=== PATIENT | female | born 1990 | race African-American/Black ===

== ENCOUNTER 2018-10-15 19:06 | Emergency (ER) | payer MEDICAID, OTHER ==
--- NOTE | 2018-10-15 19:43 | ER Document Report ---
ED Medical Screen (RME) - General Chief Complaint: Abdominal Pain Stated Complaint: STOMACH PAIN Time Seen by Provider: 10/15/18 19:36 Notes: 28-year-old female patient who got her Depo shot earlier this month, reports about a 5-day history of nighttime epigastric and right upper quadrant abdominal pain which is sharp in nature and at times provokes nausea vomiting. She did have burger and fries for supper last night. She states she does get cramping sometimes when she is on the Depo shot, but states this seems different. I have greeted and performed a rapid initial assessment of this patient. A comprehensive ED assessment and evaluation of the patient, analysis of test results and completion of the medical decision making process will be conducted by additional ED providers. TRAVEL OUTSIDE OF THE [place] IN LAST 30 DAYS: No - Related Data Allergies/Adverse Reactions: No Known Allergies Allergy (Verified 10/15/18 19:36) Past Medical History - Social History Frequency of alcohol use: Occasional Drug Abuse: None Renal/ Medical History: Denies: Hx Peritoneal Dialysis Past Surgical History: Reports: Hx Gynecologic Surgery - d & c - Immunizations Hx Diphtheria, Pertussis, Tetanus Vaccination: Yes Physical Exam - Vital signs Vitals: Temp Pulse Resp BP Pulse Ox 97.9 F 89 16 105/67 100 10/15/18 19:14 10/15/18 19:14 10/15/18 19:14 10/15/18 19:14 10/15/18 19:14 Course - Vital Signs Vital signs: Temp Pulse Resp BP Pulse Ox 97.9 F 89 16 105/67 100 10/15/18 19:14 10/15/18 19:14 10/15/18 19:14 10/15/18 19:14 10/15/18 19:14
--- NOTE | 2018-10-15 20:36 | RADIOLOGY REPORT (SQ) ---
US ABDOMEN LIMITED HISTORY: Right upper quadrant pain. COMPARISON: None. TECHNIQUE: Grayscale and color Doppler imaging of the right upper quadrant was performed. FINDINGS: The liver has normal echotexture without focal lesion identified. The main portal vein has normal hepatopetal flow. The gallbladder is contracted, limiting evaluation. No gallstones or inflammatory changes are seen. The common bile duct is normal caliber. The pancreas is unremarkable. No hydronephrosis or shadowing renal stones are identified. The right kidney is normal in size. There is a 1.5 x 1.6 x 1.7 cm septated cyst in the upper pole. The visualized portions of the IVC and aorta are patent. IMPRESSION: 1. Contracted gallbladder limits evaluation. However no gallstones are seen. 2. 1.7 cm septated cyst in the upper pole right kidney.
[2018-10-15 20:42] LABS: ABSOLUTE EOSINOPHILS # (AUTO) 0.2 10^3/uL (0.0-0.6); ABSOLUTE LYMPHOCYTES (AUTO) 2.8 10^3/uL (0.5-4.7); ABSOLUTE MONOCYTES (AUTO) 0.6 10^3/uL (0.1-1.4); BASOPHILS % (AUTO) 0.5 % (0-2); EOSINOPHILS % (AUTO) 1.8 % (0-6); HEMATOCRIT 42.5 % (36.0-47.0); HEMOGLOBIN 14.5 g/dL (12.0-15.5); MEAN CORPUSCULAR HEMOGLOBIN 30.7 pg (27.0-33.4); MEAN CORPUSCULAR HGB CONC 34.1 g/dL (32.0-36.0); MEAN CORPUSCULAR VOLUME 90 fl (80-97); MONOCYTES % (AUTO) 7.3 % (3-13); PLATELET COUNT 224 10^3/uL (150-450); RED BLOOD COUNT 4.72 10^6/uL (3.72-5.28); RED CELL DISTRIBUTION WIDTH 13.4 % (11.5-14.0); SEGMENTED NEUTROPHILS % (AUTO) 58.4 % (42-78); TOTAL CELLS COUNTED % (AUTO) 100 %; WHITE BLOOD COUNT 8.6 10^3/uL (4.0-10.5)
[2018-10-15 20:47] LABS: APPEARANCE,URINE CLEAR; BILIRUBIN,URINE NEGATIVE (NEGATIVE); COLOR,URINE YELLOW; GLUCOSE, URINE NEGATIVE (NEGATIVE); KETONES,URINE NEGATIVE (NEGATIVE); LEUKOCYTE ESTERASE,URINE NEGATIVE (NEGATIVE); NITRITE,URINE NEGATIVE (NEGATIVE); PROTEIN,URINE NEGATIVE (NEGATIVE); URINE SPECIFIC GRAVITY 1.021
--- NOTE | 2018-10-15 20:55 | ER Document Report ---
ED GI/ - General Chief Complaint: Abdominal Pain Stated Complaint: STOMACH PAIN Time Seen by Provider: 10/15/18 19:36 Primary Care Provider: [facility] [Provider Group] - Follow up in 3-5 days [facility] [Primary Care Provider] - Follow up in 3-5 days Notes: Patient is a 28-year-old female that comes emergency department for chief complaint of abdominal pain. She states that she has had abdominal pains intermittently for the past 5 days, last night it was worse when lying down, she vomited 3 times since last night. She reports her pain is mainly in her right mid to upper abdomen, she reports some vague pain in her back tube. She reports a few loose stools since yesterday as well. Denies hematemesis or hematochezia. Denies fever or chills. Denies lower abdominal pain, vaginal bleeding, vaginal discharge, dysuria. Patient did have a burger and fries for dinner last night. She states she got her Depakote shot this month but the cramping she usually gets with that feels different from what she is experiencing. She has had a D&C, she denies any medical history otherwise. TRAVEL OUTSIDE OF THE [place] IN LAST 30 DAYS: No - Related Data Allergies/Adverse Reactions: No Known Allergies Allergy (Verified 10/15/18 19:36) Past Medical History - General Information source: Patient - Social History Smoking Status: Never Smoker Frequency of alcohol use: Occasional Drug Abuse: None Lives with: Family Family History: Reviewed & Not Pertinent Patient has suicidal ideation: No Patient has homicidal ideation: No - Medical History Medical History: Negative Renal/ Medical History: Denies: Hx Peritoneal Dialysis Past Surgical History: Reports: Hx Gynecologic Surgery - d & c - Immunizations Hx Diphtheria, Pertussis, Tetanus Vaccination: Yes Review of Systems - Review of Systems Constitutional: No symptoms reported EENT: No symptoms reported Cardiovascular: No symptoms reported Respiratory: No symptoms reported Gastrointestinal: See HPI Genitourinary: No symptoms reported Female Genitourinary: No symptoms reported Musculoskeletal: No symptoms reported Skin: No symptoms reported Hematologic/Lymphatic: No symptoms reported Neurological/Psychological: No symptoms reported Physical Exam - Vital signs Vitals: Temp Pulse Resp BP Pulse Ox 97.9 F 89 16 105/67 100 10/15/18 19:14 10/15/18 19:14 10/15/18 19:14 10/15/18 19:14 10/15/18 19:14 - Notes Notes: GENERAL: Alert, interacts well. No acute distress. HEAD: Normocephalic, atraumatic. EYES: Pupils equal, round, and reactive to light. Extraocular movements intact. ENT: Oral mucosa moist, tongue midline. Oropharynx unremarkable. Airway patent. Nares patent, no nasal septal hematoma, TM's intact. NECK: Full range of motion. Supple. Trachea midline. LUNGS: Clear to auscultation bilaterally, no wheezes, rales, or rhonchi. No respiratory distress. HEART: Regular rate and rhythm. No murmur ABDOMEN: Soft, non-tender. Non-distended. Bowel sounds present in all 4 quadrants. GENITOURINARY: Deferred EXTREMITIES: Moves all 4 extremities spontaneously. No edema, normal radial and dorsalis pedis pulses bilaterally. No cyanosis. BACK: no cervical, thoracic, lumbar midline tenderness. No saddle anesthesia, normal distal neurovascular exam. NEUROLOGICAL: Alert and oriented x3. Normal speech. [cranial nerves II through XII grossly intact]. PSYCH: Normal affect, normal mood. SKIN: Warm, dry, normal turgor. No rashes or lesions noted. Course - Re-evaluation Re-evalutation: Patient with no current symptoms. Her abdomen is benign unremarkable. She indicates that the pain is in the right upper quadrant area and some up to the epigastric area and mid abdomen. However the abdomen is nontender at this time. She states the symptoms keep happening during the night. Ultrasound shows incidental right renal cyst, unremarkable gallbladder, CBC, c hemistry, lipase, urinalysis unremarkable. test added on. test is actually positive. I discussed with patient at bedside. She has no lower abdominal pain, no vaginal bleeding, and she has no current symptoms. However decision was made to proceed with hCG quantitative, this is performed, this was 67,000. Based on her lack of pain and very elevated hCG I do have a low suspicion of ectopic but I did recommend that we perform an ultrasound to confirm intrauterine because of her abdominal pain and vomiting along with elevated hCG. Patient declined. Patient states that she will follow-up with the health department first, requested proof of form, she was provided with the Zofran and Pepcid for home. Discussed return precautions in detail. Patient states understanding and agreement with plan. Stable at time of discharge. - Vital Signs Vital signs: Temp Pulse Resp BP Pulse Ox 97.6 F 76 15 97/56 L 100 10/15/18 21:43 10/15/18 21:43 10/15/18 21:43 10/15/18 21:43 10/15/18 21:43 - Laboratory Result Diagrams: 10/15/18 20:17 10/15/18 20:17 Laboratory results interpreted by me: 10/15/18 10/15/18 10/15/18 20:17 20:17 20:17 Sodium 135.8 L Beta HCG, Quant Urine Urobilinogen 2.0 H Urine HCG, Qual POSITIVE H 10/15/18 20:17 Sodium Beta HCG, Quant 62821.00 H Urine Urobilinogen Urine HCG, Qual Discharge - Discharge Clinical Impression: Upper abdominal pain, Vomiting affecting Disposition: HOME, SELF-CARE Additional Instructions: Your ultrasound shows a cyst on your kidney (right), otherwise is unremarkable. This is routinely followed by primary care. Your lab workup does not show any concerning findings. Your test is positive, because we did not obtain an ultrasound today and I do not know the exact duration of your . You have been provided with nausea medication to take if needed, you can take the Pepcid as well. Follow-up closely with health department or the OBGYN referral listed, begin vitamins. Return if you worsen in any way including uncontrolled vomiting, lower abdominal pain, vaginal bleeding, or any other concerning or worsening symptoms. Prescriptions: Famotidine [Pepcid 20 mg Tablet] 20 mg PO BID #12 tablet Ondansetron [Zofran Odt 4 mg Tablet] 1 - 2 tab PO Q4H PRN #15 tab.rapdis PRN Reason: For Nausea/Vomiting [facility] - Follow up in 3-5 days [facility] [Provider Group] - Follow up in 3-5 days
[2018-10-15 21:07] LABS: ALANINE AMINOTRANSFERASE 23 U/L (9-52); ALKALINE PHOSPHATASE 86 U/L (38-126); ANION GAP 8 (5-19); ASPARTATE AMINO TRANSFERASE 19 U/L (14-36); BILIRUBIN,DIRECT 0.2 mg/dL (0.0-0.4); BILIRUBIN,TOTAL 0.4 mg/dL (0.2-1.3); BLOOD UREA NITROGEN 14 mg/dL (7-20); CARBON DIOXIDE 27 mmol/L (22-30); CHLORIDE 101 mmol/L (98-107); GLUCOSE 82 mg/dL (75-110); LIPASE 147.9 U/L (23-300); POTASSIUM 4.2 mmol/L (3.6-5.0); SODIUM 135.8 mmol/L (137-145); TOTAL PROTEIN 7.3 g/dL (6.3-8.2)
[2018-10-15] MEDS ORDERED: FAMOTIDINE 20 MG TABLET PO ONE (21:27)
[2018-10-15] MEDS ORDERED: ONDANSETRON 4 MG TAB.RAPDIS PO ONE (21:27)
[2018-10-15] MEDS ORDERED: SUCRALFATE 1 GM TABLET PO ONE (21:27)
[2018-10-15 21:44] VITALS: BP 97/56
== END 2018-10-15 23:13 | disposition home or self-care (01) ==
LOC: ER 19:06
DX: O21.9 Vomiting of pregnancy, unspecified (principal); R10.10 Upper abdominal pain, unspecified
CPT/HCPCS: 36415; 99284; 84702; 83690; 85025; 81025; 80053; 81001; 76705; S0119

== ENCOUNTER 2018-12-19 10:28 | Emergency (ER) | payer MEDICAID ==
[2018-12-19] MEDS ORDERED: ACETAMINOPHEN 325 MG TABLET PO ONE (10:51)
--- NOTE | 2018-12-19 10:53 | ER Document Report ---
ED Medical Screen (RME) - General Chief Complaint: OB Problem (<20wks) Stated Complaint: ABDOMINAL PAIN Time Seen by Provider: 12/19/18 10:47 Primary Care Provider: [facility] CRESPO [Primary Care Provider] - Follow up as needed Mode of Arrival: Ambulatory Information source: Patient Notes: Patient presents with complaints of contractions and vomiting twice this morning. Reports she is G4, P3 approximately 16 weeks with twins. Has first OB appointment in [place]. Denies trauma. Denies diarrhea. 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 They have eased off a little since she sat down. Has not had this in the past. Reports her first 3 pregnancies with vaginal without complications. I have greeted and performed a rapid initial assessment of this patient. A comprehensive ED assessment and evaluation of the patient, analysis of test results and completion of the medical decision making process will be conducted by additional ED providers. Dictation of this chart was performed using voice recognition software; therefore, there may be some unintended grammatical errors. TRAVEL OUTSIDE OF THE [place] IN LAST 30 DAYS: No - Related Data Allergies/Adverse Reactions: No Known Allergies Allergy (Verified 12/19/18 10:29) Past Medical History Renal/ Medical History: Denies: Hx Peritoneal Dialysis Past Surgical History: Reports: Hx Gynecologic Surgery - d & c - Immunizations Hx Diphtheria, Pertussis, Tetanus Vaccination: Yes Physical Exam - Vital signs Vitals: Temp Pulse Resp BP Pulse Ox 98.2 F 88 16 103/57 L 100 12/19/18 10:12/19/18 10:12/19/18 10:12/19/18 10:31 12/19/18 10:31 Course - Vital Signs Vital signs: Temp Pulse Resp BP Pulse Ox 98.2 F 88 16 103/57 L 100 12/19/18 10:31 12/19/18 10:31 12/19/18 10:31 12/19/18 10:31 12/19/18 10:31 Doctor's Discharge - Discharge Referrals: CHAI CRESPO [Primary Care Provider] - Follow up as needed
[2018-12-19 11:37] LABS: ABSOLUTE EOSINOPHILS # (AUTO) 0.1 10^3/uL (0.0-0.6); ABSOLUTE LYMPHOCYTES (AUTO) 1.1 10^3/uL (0.5-4.7); ABSOLUTE MONOCYTES (AUTO) 0.4 10^3/uL (0.1-1.4); ABSOLUTE NEUT (AUTO) 4.8 10^3/uL (1.7-8.2); BASOPHILS % (AUTO) 0.1 % (0-2); EOSINOPHILS % (AUTO) 1.3 % (0-6); HEMATOCRIT 38.5 % (36.0-47.0); HEMOGLOBIN 12.8 g/dL (12.0-15.5); LYMPHOCYTES % (AUTO) 17.6 % (13-45); MEAN CORPUSCULAR HEMOGLOBIN 30.1 pg (27.0-33.4); MEAN CORPUSCULAR HGB CONC 33.4 g/dL (32.0-36.0); MEAN CORPUSCULAR VOLUME 90 fl (80-97); MONOCYTES % (AUTO) 6.1 % (3-13); PLATELET COUNT 215 10^3/uL (150-450); RED BLOOD COUNT 4.26 10^6/uL (3.72-5.28); RED CELL DISTRIBUTION WIDTH 13.6 % (11.5-14.0); SEGMENTED NEUTROPHILS % (AUTO) 74.9 % (42-78); TOTAL CELLS COUNTED % (AUTO) 100 %; WHITE BLOOD COUNT 6.4 10^3/uL (4.0-10.5)
[2018-12-19 11:41] LABS: APPEARANCE,URINE SLIGHTLY-CLOUDY; BILIRUBIN,URINE NEGATIVE (NEGATIVE); COLOR,URINE YELLOW; GLUCOSE, URINE NEGATIVE (NEGATIVE); KETONES,URINE TRACE mg/dL (NEGATIVE); LEUKOCYTE ESTERASE,URINE NEGATIVE (NEGATIVE); NITRITE,URINE NEGATIVE (NEGATIVE); PROTEIN,URINE NEGATIVE (NEGATIVE); URINE SPECIFIC GRAVITY 1.019; UROBILINOGEN,URINE NEGATIVE mg/dL (<2.0)
[2018-12-19 12:11] LABS: ALANINE AMINOTRANSFERASE 38 U/L (9-52); ALBUMIN 3.8 g/dL (3.5-5.0); ALKALINE PHOSPHATASE 63 U/L (38-126); ANION GAP 9 (5-19); ASPARTATE AMINO TRANSFERASE 39 U/L (14-36); BILIRUBIN,DIRECT 0.2 mg/dL (0.0-0.4); BILIRUBIN,TOTAL 0.4 mg/dL (0.2-1.3); BLOOD UREA NITROGEN 7 mg/dL (7-20); CALCIUM 9.4 mg/dL (8.4-10.2); CARBON DIOXIDE 25 mmol/L (22-30); CHLORIDE 104 mmol/L (98-107); GLUCOSE 74 mg/dL (75-110); POTASSIUM 4.3 mmol/L (3.6-5.0); SODIUM 138.2 mmol/L (137-145); TOTAL PROTEIN 6.9 g/dL (6.3-8.2)
--- NOTE | 2018-12-19 13:07 | RADIOLOGY REPORT (SQ) ---
EXAM DESCRIPTION: U/S 30219 + EACH ADDIT GEST; U/S OB 14+ TRNABD 1GES W/O DOP COMPLETED DATE/TIME: 12/19/2018 12:49 pm REASON FOR STUDY: 16weeks twins contractions; CONTRACTIONS- 16 WEEK TWINS COMPARISON: None. TECHNIQUE: Transabdominal static and realtime grayscale images acquired of the pelvis. Additional se lected spectral and color Doppler images recorded. All images stored on PACs. bHCG: Not applicable. CLINICAL DATES: 16 weeks 6 days LIMITATIONS: None. FINDINGS: Twin Intra-uterine gestation TYPE OF TWIN: Dichorionic Diamniotic. Two gestation sacs. Two yolk sacs. TWIN A: ULTRASOUND EGA: 15 weeks 3 days ULTRASOUND SRINIVASA: 06/09/2019 EFW: 124 +/- 18 g BPD: 3.05 cm GESTATIONAL SAC: Normal shape. SURVEY: Too early to assess. FHR: 155 bpm. AMNIOTIC FLUID: Adequate amount. PLACENTA: Posterior SUBCHORIONIC BLEED: No SIZE OF BLEED: Not applicable. ANATOMICAL SURVEY: bladder, stomach, spine, and extremities were unremarkable. TWIN B: ULTRASOUND EGA: 16 weeks 0 days ULTRASOUND SRINIVASA: 06/05/2019 EFW: 150 +/- 22 g BPD: 3.21 cm GESTATIONAL SAC: Normal shape. SURVEY: Too early to assess. FHR: 153 bpm. AMNIOTIC FLUID: Adequate amount. SUBCHORIONIC BLEED: None SIZE OF BLEED: Not applicable. ANATOMICAL SURVEY: stomach, spine, and extremities were unremarkable. UTERUS: No masses. No anomalies. CERVICAL LENGTH: 2.5 cm. Closed. RIGHT ADNEXA: Normal ovary with normal vascular flow. No adnexal free fluid. No adnexal masses. LEFT ADNEXA: Normal ovary with normal vascular flow. No adnexal free fluid. No adnexal masses. FREE FLUID: None. OTHER: An anterior contraction was noted during the study. IMPRESSION: LIVING TWIN INTRAUTERINE TWIN A EGA: 15 weeks 3 days TWIN B EGA: 16 weeks 0 days Trimester of : Second-trimester. TECHNICAL DOCUMENTATION: JOB ID: [id number] [employer]- All Rights Reserved rev Reading location - IP/workstation name: [email or web address]
--- NOTE | 2018-12-19 13:07 | RADIOLOGY REPORT (SQ) ---
EXAM DESCRIPTION: U/S 35173 + EACH ADDIT GEST; U/S OB 14+ TRNABD 1GES W/O DOP COMPLETED DATE/TIME: 12/19/2018 12:49 pm REASON FOR STUDY: 16weeks twins contractions; CONTRACTIONS- 16 WEEK TWINS COMPARISON: None. TECHNIQUE: Transabdominal static and realtime grayscale images acquired of the pelvis. Additional se lected spectral and color Doppler images recorded. All images stored on PACs. bHCG: Not applicable. CLINICAL DATES: 16 weeks 6 days LIMITATIONS: None. FINDINGS: Twin Intra-uterine gestation TYPE OF TWIN: Dichorionic Diamniotic. Two gestation sacs. Two yolk sacs. TWIN A: ULTRASOUND EGA: 15 weeks 3 days ULTRASOUND SRINIVASA: 06/09/2019 EFW: 124 +/- 18 g BPD: 3.05 cm GESTATIONAL SAC: Normal shape. SURVEY: Too early to assess. FHR: 155 bpm. AMNIOTIC FLUID: Adequate amount. PLACENTA: Posterior SUBCHORIONIC BLEED: No SIZE OF BLEED: Not applicable. ANATOMICAL SURVEY: bladder, stomach, spine, and extremities were unremarkable. TWIN B: ULTRASOUND EGA: 16 weeks 0 days ULTRASOUND SRINIVASA: 06/05/2019 EFW: 150 +/- 22 g BPD: 3.21 cm GESTATIONAL SAC: Normal shape. SURVEY: Too early to assess. FHR: 153 bpm. AMNIOTIC FLUID: Adequate amount. SUBCHORIONIC BLEED: None SIZE OF BLEED: Not applicable. ANATOMICAL SURVEY: stomach, spine, and extremities were unremarkable. UTERUS: No masses. No anomalies. CERVICAL LENGTH: 2.5 cm. Closed. RIGHT ADNEXA: Normal ovary with normal vascular flow. No adnexal free fluid. No adnexal masses. LEFT ADNEXA: Normal ovary with normal vascular flow. No adnexal free fluid. No adnexal masses. FREE FLUID: None. OTHER: An anterior contraction was noted during the study. IMPRESSION: LIVING TWIN INTRAUTERINE TWIN A EGA: 15 weeks 3 days TWIN B EGA: 16 weeks 0 days Trimester of : Second-trimester. TECHNICAL DOCUMENTATION: JOB ID: [id number] [employer]- All Rights Reserved rev Reading location - IP/workstation name: [email or web address]
--- NOTE | 2018-12-19 14:56 | ER Document Report ---
ED GI/ - General Chief Complaint: OB Problem (<20wks) Stated Complaint: ABDOMINAL PAIN Time Seen by Provider: 12/19/18 10:47 [facility] - Follow up as needed Mode of Arrival: Ambulatory Information source: Patient Notes: 28-year-old female presented to ED for abdominal pain twice this morning. She is 4 para 3 approximately 16 weeks with twins. She is seeing [place] [facility]. She denies any trauma or any other problems. She states she had some orange juice and donuts this morning which made her sick and then made her stomach hurt. 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 She states she is no longer having any pain or any nausea. She states her first 3 pregnancies were with no difficulty. TRAVEL OUTSIDE OF THE [place] IN LAST 30 DAYS: No - HPI Patient complains to provider of: Abdominal pain, Onset: This morning Timing/Duration: Gone Quality of pain: Cramping Severity at maximum: Severe Severity in ED: None Pain Level: Denies Location: Pelvis - States pain was in the pelvis earlier she is not having any now Vaginal bleeding (Compared to normal period): None Menstrual period history: : 4 Para: 3 heart tones (bpm): 155 - twin b 153 EDC: 06/05/19 - 06/09/19 OB ultrasound done: Yes vitamins taken: Yes Associated symptoms: Nausea, Vomiting - gone now Exacerbated by: Denies Relieved by: Denies Similar symptoms previously: Yes Recently seen / treated by doctor: Yes - Related Data Allergies/Adverse Reactions: No Known Allergies Allergy (Verified 12/19/18 11:01) Past Medical History - General Information source: Patient Last Menstrual Period: unknown - Social History Smoking Status: Never Smoker Chew tobacco use (# tins/day): No Frequency of alcohol use: None Drug Abuse: None Lives with: Family Family History: Reviewed & Not Pertinent Patient has suicidal ideation: No Patient has homicidal ideation: No - Past Medical History Cardiac Medical History: Reports: None Pulmonary Medical History: Reports: None EENT Medical History: Reports: None Neurological Medical History: Reports: None Endocrine Medical History: Reports: None Renal/ Medical History: Reports: None Malignancy Medical History: Reports: None GI Medical History: Reports: None Musculoskeletal Medical History: Reports None Skin Medical History: Reports None Psychiatric Medical History: Reports: None Traumatic Medical History: Reports: None Infectious Medical History: Reports: None Past Surgical History: Reports: Hx Gynecologic Surgery - d & c - Immunizations Hx Diphtheria, Pertussis, Tetanus Vaccination: Yes Review of Systems - Review of Systems Constitutional: No symptoms reported EENT: No symptoms reported Cardiovascular: No symptoms reported Respiratory: No symptoms reported Gastrointestinal: Abdominal pain, Nausea, Vomiting Genitourinary: No symptoms reported Female Genitourinary: No symptoms reported Musculoskeletal: No symptoms reported Skin: No symptoms reported Hematologic/Lymphatic: No symptoms reported Neurological/Psychological: No symptoms reported -: Yes All other systems reviewed and negative Physical Exam - Vital signs Vitals: Temp Pulse Resp BP Pulse Ox 98.2 F 88 16 103/57 L 100 12/19/18 10:31 12/19/18 10:31 12/19/18 10:31 12/19/18 10:31 12/19/18 10:31 Interpretation: Normal - General General appearance: Appears well, Alert - HEENT Head: Normocephalic, Atraumatic Eyes: Normal Pupils: PERRL - Respiratory Respiratory status: No respiratory distress Chest status: Nontender Breath sounds: Normal Chest palpation: Normal - Cardiovascular Rhythm: Regular Heart sounds: Normal auscultation Murmur: No - Abdominal Inspection: Normal Distension: No distension Bowel sounds: Normal Tenderness: Nontender Organomegaly: No organomegaly - Back Back: Normal, Nontender - Extremities General upper extremity: Normal inspection, Nontender, Normal color, Normal ROM, Normal temperature General lower extremity: Normal inspection, Nontender, Normal color, Normal ROM, Normal temperature, Normal weight bearing. No: Odette's sign - Neurological Neuro grossly intact: Yes Cognition: Normal Orientation: AAOx4 [place] Coma Scale Eye Opening: Spontaneous Мария Coma Scale Verbal: Oriented [place] Coma Scale Motor: Obeys Commands Мария Coma Scale Total: 15 Speech: Normal Motor strength normal: LUE, RUE, LLE, RLE Sensory: Normal - Psychological Associated symptoms: Normal affect, Normal mood - Skin Skin Temperature: Warm Skin Moisture: Dry Skin Color: Normal Course - Re-evaluation Re-evalutation: 12/19/18 14:58 Discussed and ultrasound and labs with patient and written report of ultrasound and labs given to patient for follow-up with [facility] OPERATOR. Also gave patient a CD of the ultrasound to take to her follow-up [facility] OPER[facility] appointment. Patient will be discharged home to follow-up with her KEYSEATER OPERATOR. - Vital Signs Vital signs: Temp Pulse Resp BP Pulse Ox 97.7 F 88 20 101/66 100 12/19/18 14:59 12/19/18 14:59 12/19/18 14:59 12/19/18 14:59 12/19/18 14:59 - Laboratory Result Diagrams: 12/19/18 11:10 12/19/18 11:10 Laboratory results interpreted by me: 12/19/18 12/19/18 11:10 11:10 Creatinine 0.40 L Glucose 74 L AST 39 H Urine Ketones TRACE H Urine Ascorbic Acid 20 H - Diagnostic Test Radiology reviewed: Image reviewed, Reports reviewed Discharge - Discharge Clinical Impression: Qualifiers: Weeks of gestation: 16 weeks Qualified Code(s): Z3A.16 - 16 weeks gestation of Condition: Stable Disposition: HOME, SELF-CARE Additional Instructions: You are . care is best started as early in as possible. If you're unsure about continuing this , you should discuss this with your physician or with forging dies final finisher at [facility]. You should take only medications approved by your physician. Acetaminophen can safely be taken for minor pains. As a rule, medication for chronic conditions such as asthma or seizures can safely be continued. You should discuss with the physician every medicine you take. Any regular exercise program can be continued. Talk to your physician, however, before engaging in competitive or demanding sports. Alcohol, smoking, and "street drugs" are dangerous to your baby. Cocaine is especially dangerous. Don't use any illicit drugs! Acetaminophen Acetaminophen may be taken for pain relief or fever control. It's much safer than aspirin, offering a wider range of "safe" dosages. It is safe during . Some brand names are Tylenol, Panadol, Datril, Anacin 3, Tempra, and Liquiprin. Acetaminophen can be repeated every four hours. The following are maximum recommended dosages: WEIGHT Dose Drops Elixir Chewable(80mg) (LBS.) drprs=droppers tsp=teaspoon 6 40 mg .4 ml (1/2) 6-11 80 mg .8 ml (full) 1/2 tsp 1 tab 12-16 120 mg 1 1/2 drprs 3/4 tsp 1 1/2 tabs 17-23 160 mg 2 drprs 1 tsp 2 tabs 24-30 240 mg 3 drprs 1 1/2 tsp 3 tabs 30-35 320 mg 2 tsp 4 tabs 36-41 360 mg 2 1/4 tsp 4 1/2 tabs 42-47 400 mg 2 1/2 tsp 5 tabs 48-53 480 mg 3 tsp 6 tabs 54-59 520 mg 3 1/4 tsp 6 1/2 tabs 60-64 560 mg 3 1/2 tsp 7 tabs 65-70 600 mg 3 3/4 tsp 7 1/2 tabs 71-76 640 mg 4 tsp 8 tabs 77-82 720 mg 4 1/2 tsp 9 tabs 83-88 800 mg 5 tsp 10 tabs >89 pounds or adults 650 mg to 900 mg Acetaminophen can be repeated every four hours. Maximum daily dose not to exceed 4000 mg. These maximum recommended dosages are slightly higher than the dosages written on the product container, but these dosages are very safe and well below the toxic dosage for acetaminophen. Written report of your labs and ultrasound have been given to you for you to take to your follow-up visit with your [facility]SEATER OPERATOR. I have also given you a CD of your ultrasound to take to your visit. Please follow-up with your KEYSEATER OPERATOR as scheduled. FOLLOW-UP CARE: If you have been referred to a physician for follow-up care, call the physicians office for an appointment as you were instructed or within the next two days. If you experience worsening or a significant change in your symptoms, notify the physician immediately or return to the Emergency Department at any time for re-evaluation. Forms: Return to Work [facility] - Follow up as needed
[2018-12-19 15:01] VITALS: BP 101/66
== END 2018-12-19 15:05 | disposition home or self-care (01) ==
LOC: ER 10:28
DX: O26.892 Other specified pregnancy related conditions, second trimester (principal); R10.2 Pelvic and perineal pain; O30.042 Twin pregnancy, dichorionic/diamniotic, second trimester; O21.9 Vomiting of pregnancy, unspecified; Z3A.16 16 weeks gestation of pregnancy; Z79.899 Other long term (current) drug therapy
CPT/HCPCS: 99284; 36415; 85025; 80053; 81001; 76805; 76810; J3490

== ENCOUNTER 2019-05-11 15:32 | Inpatient (IN) | payer MEDICAID ==
[2019-05-11] MEDS ORDERED: BETAMET ACET/BETAMET NA INJ 6 MG/1 ML ONE (15:56)
[2019-05-11] MEDS ORDERED: BETAMET ACET/BETAMET NA INJ 6 MG/1 ML IM ONE (16:00)
[2019-05-11] MEDS ORDERED: PENICILLIN G POTASSIUM 5,000,000 UNIT in DEXTROSE 5%-WATER 100 ML IV ONE (17:20)
[2019-05-11] MEDS ORDERED: RINGERS SOLUTION,LACTATED 1,000 ML IV ONE (17:20)
[2019-05-11] MEDS ORDERED: RINGERS SOLUTION,LACTATED 1,000 ML IV PRN (17:20)
[2019-05-11] MEDS ORDERED: PENICILLIN G-K 5 MILLION UNIT VIAL ONE (17:47)
[2019-05-11 17:58] LABS: ABSOLUTE LYMPHOCYTES (AUTO) 1.6 10^3/uL (0.5-4.7); ABSOLUTE MONOCYTES (AUTO) 0.5 10^3/uL (0.1-1.4); ABSOLUTE NEUT (AUTO) 6.2 10^3/uL (1.7-8.2); BASOPHILS % (AUTO) 0.3 % (0-2); EOSINOPHILS % (AUTO) 0.6 % (0-6); HEMATOCRIT 33.8 % (36.0-47.0); HEMOGLOBIN 11.2 g/dL (12.0-15.5); LYMPHOCYTES % (AUTO) 19.2 % (13-45); MEAN CORPUSCULAR HGB CONC 33.2 g/dL (32.0-36.0); MEAN CORPUSCULAR VOLUME 91 fl (80-97); MONOCYTES % (AUTO) 5.5 % (3-13); PLATELET COUNT 187 10^3/uL (150-450); RED BLOOD COUNT 3.74 10^6/uL (3.72-5.28); RED CELL DISTRIBUTION WIDTH 14.8 % (11.5-14.0); SEGMENTED NEUTROPHILS % (AUTO) 74.4 % (42-78); TOTAL CELLS COUNTED % (AUTO) 100 %; WHITE BLOOD COUNT 8.3 10^3/uL (4.0-10.5)
[2019-05-11 18:29] LABS: URINE AMPHETAMINES SCREEN NEGATIVE; URINE BARBITURATES SCREEN NEGATIVE; URINE BENZODIAZEPINES SCREEN NEGATIVE; URINE COCAINE SCREEN NEGATIVE; URINE MARIJUANA (THC) SCREEN NEGATIVE; URINE METHADONE SCREEN NEGATIVE; URINE PHENCYCLIDINE SCREEN NEGATIVE
[2019-05-11] MEDS ORDERED: CITRIC ACID/SODIUM CITRATE ORAL SOLN 15 ML UDCUP ONE (19:37)
[2019-05-11] MEDS ORDERED: CEFAZOLIN INJ 1 GM VIAL ONE (19:37)
--- NOTE | 2019-05-11 19:49 | Admission Physical ---
Datetime Report Generated by CPN: 05/11/2019 19:48 CURRENT ADMISSION Chief Complaint: Uterine Contractions Indication for Induction: Not Applicable Admit Impression : , Intrauterine Admit Plan: Admit to Unit; Initiate Section Protocol ALLERGIES Medication Allergies: No Medication Allergies: No Known Allergies (05/11/2019) Latex: No Latex Allergies OBSTETRICAL HISTORY EDC: 06/05/2019 00:00 : 4 Para: 3 Ectopic: 0 Livin Cesareans: 0 VBACs: 0 Gestational Diabetes: No Rh Sensitization: No Incompetent Cervix: No SHAHBAZ: No Infertility: No ART Treatment: No Uterine Anomaly: No IUGR: No Hx Previous C/S: No Macrosomia: No Hx Loss/Stillborn: No PIH: No Hx : No Placenta Previa/Abruption: No Depression/PP Depression: No PTL/PROM: No Post Hemorrhage: No Obstetrical History Comments: G1: 2014 38 wks 6lbs vaginal female G2: 2009, 38 wks 7lbs male vaginal G3: 2007, 40 wks 8lbs vaginal female SEE RECORDS Alcohol: No Marijuana : No Cocaine: No Other Illicit Drugs: No Cigarettes: Never Smoker. [id number] MEDICAL HISTORY Diabetes: No Blood Transfusion: No Pulmonary Disease (Asthma, TB): No Breast Disease: No Hypertension: No Remote Mortgage Underwriter Surgery: No Heart Disease: No Hosp/Surgery: No Autoimmune Disorder: No Anesthetic Complications: No Kidney Disease: No Abnormal Pap Smear: No Neuro/Epilepsy: No Psychiatric Disorders: No Other Medical Diseases: No Hepatitis/Liver Disease: No Significant Family History: No Varicosities/Phlebitis: No Trauma/Violence : No Thyroid Dysfunction: No INFECTIOUS HISTORY Gonorrhea: No Genital Herpes: No Chlamydia: No Tuberculosis: No Syphilis: No Hepatitis: No HIV/AIDS Exposure: No Rash or Viral Illness: No HPV: No PHYSICAL EXAM General: Normal HEENT: Normal Neurologic: Normal Thyroid: Deferred Heart: Normal Lungs: Normal Breast: Deferred Back: Normal Abdomen: Normal Genitourinary Exam: Normal Extremities: Normal DTRs: Normal Pelvic Type: Adequate Vital Signs: Reviewed VAGINAL EXAM Dilatation: 5 Effacement: 90 Station: 0 FETUS A EGA: 36.3 Monitoring: External US FHR- Baseline: 125 Variability: Moderate 6-25bpm Accelerations: 15X15 Decelerations: None FHR Category: Category I Presentation: Breech Admit Comment: 29yo at 36+3ega MC/DA TIUP presents for evaluation with contractions. She was seen in the Office today and was reportedly vertex atn 4/60/-3. Now reports contractions q 5 minutes and 5/90/BB but feels like breech or torso. Bedside US with breech presentation. Formal US with Breech presentation also. She desires to have a BTL. She is 100% sure that she has completed childbearing. CF carrier - FOB declines testing. baby B poly. one dose of celestone given upon admission. Baby A 23% and baby B35%. Reviewed with patient recommendation for Primary section with BTL. Consents signed and team notified. FETUS B Monitoring: External US PLANS FOR LABOR AND DELIVERY Labor and Delivery: None Pain Management: Spinal Feeding Preference: Breast Benefit of Breast Feed Discussed: Yes Circumcision: N/A INFORMED CONSENT Informed Consent Obtained: Section Delivery; Sterilization; Risks, Benefits and Alternatives Discussed Signature: with User ID: Mallika
[2019-05-11] MEDS ORDERED: PHENYLEPHRINE HCL INJ/PF 10 MG/1 ML SDV ONE (20:00)
[2019-05-11] MEDS ORDERED: MIDAZOLAM 2 MG/2 ML INJ ONE (20:00)
[2019-05-11] MEDS ORDERED: FENTANYL CITRATE INJ/PF 100 MCG/2 ML AMPUL ONE (20:00)
[2019-05-11] MEDS ORDERED: ONDANSETRON HCL INJ/PF 4 MG/2 ML SDV ONE (20:00)
[2019-05-11] MEDS ORDERED: OXYTOCIN 10 UNIT/ML VIAL ONE (20:00)
[2019-05-11] MEDS ORDERED: METHYLERGONOVINE MALEATE INJ/PF 0.2 MG/1 ML AMPULE ONE (20:12)
[2019-05-11] MEDS ORDERED: MISOPROSTOL 0.2 MG TABLET ONE (20:12)
--- NOTE | 2019-05-11 20:36 | RADIOLOGY REPORT (SQ) ---
EXAM DESCRIPTION: US LIMITED COMPLETED DATE/TME: 05/11/2019 19:19 CLINICAL HISTORY: 29 years, Female, iup 36.2 wks twins A B presentation COMPARISON: Prior study from 12/19/2018 TECHNIQUE: Axial 2-D grayscale images of the pelvis were acquired. Doppler was utilized. LIMITATIONS: None. FINDINGS: Twin gestation is identified. Cervix was not visualized. Fetus A: Largest vertical pocket of amniotic fluid is 6.7 cm. In addition, the amniotic fluid appears to demonstrate low-level internal echoes, suggestive of debris. heart rate is 140 bpm Placenta is posterior in location. presentation is breech. Fetus B: Largest vertical pocket of amniotic fluid is 6.1 cm heart rate is 162 bpm Placenta is posterior in location presentation is transverse. In addition, fetus B is located closer to the cervix. IMPRESSION: Twin gestation, as above described. copyright 2010 [employer]- All Rights Reserved
[2019-05-11] MEDS ORDERED: PENICILLIN G POTASSIUM 2,500,000 UNIT in DEXTROSE 5%-WATER 50 ML IV SCH (21:21)
[2019-05-11] MEDS ORDERED: MEPERIDINE HCL/PF INJ 25 MG/1 ML DISP.SYRIN ONE (21:47)
[2019-05-11] MEDS ORDERED: PROMETHAZINE HCL INJ 25 MG/1 ML VIAL ONE (22:01)
[2019-05-11] MEDS ORDERED: DIPH/PERTUSS(ACELL)/TETANUS VAC/PF 0.5 ML SYR (>=10YO) IM PRN (22:05)
[2019-05-11] MEDS ORDERED: ACETAMINOPHEN 325 MG TABLET PO PRN (22:05)
[2019-05-11] MEDS ORDERED: SIMETHICONE 80 MG TAB.CHEW PO PRN (22:05)
[2019-05-11] MEDS ORDERED: PROMETHAZINE HCL INJ 25 MG/1 ML VIAL IV PRN (22:05)
[2019-05-11] MEDS ORDERED: ACETAMINOPHEN 1,000 MG/100 ML RTUPB IV PRN (22:05)
[2019-05-11] MEDS ORDERED: MEASLES,MUMPS&RUBELLA VACC/PF 0.5 ML VIAL SUBCUT PRN (22:05)
[2019-05-11] MEDS ORDERED: OXYTOCIN/NORMAL SALINE 20 UNIT/1,000 ML RTUINJ IV PRN (22:05)
[2019-05-11] MEDS ORDERED: HYDROMORPHONE HCL INJ/PF 2 MG/ML AMPULE IV PRN (22:05)
--- NOTE | 2019-05-11 22:05 | Operative Report ---
Operative Report DATE OF SURGERY: 05/11/19 PREOPERATIVE DIAGNOSIS: Multiparous, Monochorionic Diamniotic TIUP, Undesired F ertility, Breech/Transverse, Polyhydramnios of Twin B, Active Labor with Advanced Cervical Dilation, CF carrier, Close interval POSTOPERATIVE DIAGNOSIS: KAYLYNN - delivered OPERATION: Primary section with Bilateral tubal ligation SURGEON: PETR BURNETTE ANESTHESIA: Spinal TISSUE REMOVED OR ALTERED: Placenta and cord x 2 - sent to pathology COMPLICATIONS: None ESTIMATED BLOOD LOSS: 600ml QUANTITATIVE BLOOD LOSS: 1,970 INTRAOPERATIVE FINDINGS: normal uterus, normal bilateral tubes and ovaries. Mani Breech Baby A, Weight 2230g, Apgars 8/9, time of 2046, Mani Breech baby B, Weight 2275g, Apgars 8/9, time of 2048. IVF 1800ml, UOP 300ml. Filschie clips x 2 placed bilateral fallopian tubes. Cytotec 1000mcg per rectum given. Suspect that QBL is an error due to significant polyhydramnios of Baby B PROCEDURE: Anesthesia provider: [Naomy NATH, Jamal Sharp CRNA] Urine output: [300ml] IV fluids: [1800ml] Indications: [29yo at 36+3ega with MC/DA TIUP and active labor with advanced cervical dilation. Breech/Transverse on US. See H&P for growth and discordance. She has no future fertility desires and is completed childbearing. She is 100% sure that she has completed childbearing. SHe desires to have Bilateral tubal ligation. Reviewed advanced cervical dilation with active labor and malpresentation of Twin A and recommendation for Primary section. celestone 12mg given upon arrival. She desires to proceed with planned Primary section and BTL. The risks, benefits, alternatives were reviewed and she desires to proceed with planned procedure.] Procedure: The patient was taken to the operating room where spinal anesthesia was obtained and found to be adequate. She was then prepped and draped in the normal sterile fashion and placed in the dorsal supine position with a leftward tilt. A Pfannenstiel skin incision was then made and carried through to the underlying layers of the fascia with the scalpel. The fascia was incised in the midline and the incision extended laterally with the Ryan scissors. The superior aspect of the fascial incision was then grasped with Giovani clamps elevated and the underlying rectus muscles dissected off [bluntly]. Attention was then turned to the inferior aspect of the fascial incision which in a similar fashion was grasped, tented up with Giovani clamps, and the rectus muscles dissected off [bluntly]. The rectus muscles were then in the midline and the peritoneum at the amount identified and entered [bluntly]. The peritoneal incision was then extended superiorly and inferiorly with good visualization of the bladder. The bladder blade was inserted and the vesicouterine peritoneum identified grasped with Lao pickups and entered sharply with the Metzenbaum scissors. This incision was then extended laterally with the Metzenbaum scissors and a bladder flap created digitally. The bladder blade was then reinserted and the lower uterine segment incised in a transverse fashion with the scalpel. The uterine incision was then extended bluntly. The bladder blade was removed and Baby A was delivered from the mani breech presentation in the usual fashion. The nose and mouth were suctioned and the cord doubly clamped and cut. And the was handed off to waiting pediatricians. At this time AROM was performed of baby B amniotic sac with significant polhydramnios noted. Baby B was then delivered from mani breech presentation in the usual fashion. The nose and mouth were suctioned and the cord doubly clamped and cut. The infant was handed off to the awaiting pediatricians. The placenta was then delivered spontaneously and the uterus exteriorized and cleared of all clots and debris. The uterine incision was then repaired with 1- 0 Vicryl in a running locked fashion. A second layer of the same suture was used to obtain hemostasis via imbrication of the initial layer. The bladder flap was then repaired with 3-0 chromic in a running fashion. The left fallopian tube was identified ad followed out to the fimbriated end and FIlschie clip times two was placed in the mid ampullary portion of the fallopian tube. This procedure was repeated on the patients right thus completing bilateral tubal ligation. The uterus was returned to the patient's abdomen. The gutters were cleared of all clots and debris. All operative sites were noted to be hemostatic. The fascia was reapproximated with 0 Vicryl in a running fashion from each lateral edge to the midline. The skin was closed with 3-0 Monocryl in a running subcuticular fashion with overlying Dermabond for additional dressing as well as wound closure. The patient tolerated the procedure well. Sponge lap needle and instrument counts are correct times 2. 2 g of Ancef were given prior to skin incision. The patient was taken to the recovery area awake and in stable condition.
--- NOTE | 2019-05-12 00:14 | Delivery Summary ---
Del Sum A-C Datetime Report Generated by CPN: 05/12/2019 00:13 DELIVERY PERSONNEL DELIVERY PERSONNEL: [id number] Delivery Doctor:: Urmila Zheng MD Anesthesiologist:: Sanket Moralez MD HUMAN RESOURCES TALENT MANAGER:: Jamal Lila, HUMAN RESOURCES TALENT MANAGER Gaming Host:: Acacia Brownrge, RN Registered Client Associate/TRASH HAULER: Belen Gil, ST Registered Client Associate/TRASH HAULER: Rasheeda Albrecht, ST MATERNAL INFORMATION Delivery Anesthesia: Spinal Medications After Delivery: Pitocin Drip 20 Units/1000ml NSS; Cytotec 1000mcg Per Rectum/Vagina Delivery QBL: 600 LABOR SUMMARY EDC: 06/05/2019 00:00 No. Babies in Womb: 2 Attempted: No LABOR INFORMATION Reason for Induction: Polyhydramnios; Other Reason for Induction- Other: mono di twins, polyhydramnios, advanced cervical dialation Oxytocin: N/A Group B Beta Strep: unknown Antibiotics # of Doses: 1 Antibiotics Time of Last Dose: 1812 Steroids Given: < 24 Hours before Delivery Reason Steroids Not Administered: Indication STAGES OF LABOR Stage 3 hr: 0 Stage 3 min: 4 VAGINAL DELIVERY Episiotomy: None Laceration #1: None Laceration Extension #1: N/A Laceration Repair: Not Applicable Sponge Count Correct: N/A Sharps Count Correct: N/A CSECTION DELIVERY Primary Indication: Multiple Gestation Secondary Indication: Breech Presentation CSection Urgency: Non-Scheduled CSection Incidence: Primary Labor: Labor Elective: Nonelective CSection Incision: Lower Uterine Transverse Sterilization Procedure: Ring and Clip BABY A INFORMATION Infant Delivery Date/Time: 05/11/2019 20:47 Method of Delivery: Born in Route : No : N/A Forceps: N/A Vacuum Extraction: N/A Shoulder Dystocia : No PRESENTATION/POSITION BABY A Presentation: Breech Cephalic Presentation: N/A Breech Presentation: Mani PLACENTA INFORMATION BABY A Placenta Delivery Time : 05/11/2019 20:51 Placenta Method of Delivery: Manual Removal Placenta Status: Delivered SCORES BABY A Heart Rate 1 min: >100 bpm Resp Effort 1 min: Good Cry Reflex Irritability 1 min: Cough or Sneeze or Pulls Away Muscle Tone 1 min: Active Motion Color 1 min: Blue/Pale Resuscitation Effort 1 min: Tactile Stimulation SCORE 1 MIN: 8 Heart Rate 5 min: >100 bpm Resp Effort 5 min: Good Cry Reflex Irritability 5 min: Cough or Sneeze or Pulls Away Muscle Tone 5 min: Active Motion Color 5 min: Body [place], Extremities Blue SCORE 5 MIN: 9 INFANT INFORMATION BABY A Gestational Age at Delivery: 36.3 Gestational Status: Late - 34- 36.6 Weeks Outcome : Liveborn Condition : Stable Infant Sex: Female WEIGHT/LENGTH BABY A Infant Birthweight (gm): 2230 Infant Weight (lb): 4 Weight (oz): 15 Infant Length (in): 17.50 (Annotations: Data stored by [facility] on behalf of user) Infant Length (cm): 44.45 CORD INFORMATION BABY A No. Cord Vessels: 3 Nuchal Cord : N/A Cord Blood Taken: Yes-For Eval (Mom's Blood Type - or O+) Suction: Mouth; Nose BABY B INFORMATION Infant Delivery Date/Time: 05/11/2019 20:49 Method of Delivery : Born in Route : No : N/A Forceps : N/A Vacuum Extraction: N/A Shoulder Dystocia : No SHOULDER DYSTOCIA BABY B Infant Delivery Date/Time: 05/11/2019 20:49 PRESENTATION/POSITION BABY B Presentation : Breech Cephalic Position : N/A Breech Position: Mani ROM/PLACENTA INFO BABY B Placenta Delivery Time : 05/11/2019 20:51 Placenta Method of Delivery: Manual Removal Placental Status : Delivered SCORES BABY B Heart Rate 1 min: >100 bpm Resp Effort 1 min: Good Cry Reflex Irritability 1 min: Cough or Sneeze or Pulls Away Muscle Tone 1 min: Active Motion Color 1 min: Blue/Pale SCORE 1 MIN: 8 Heart Rate 5 min: >100 bpm Resp Effort 5 min: Good Cry Reflex Irritability 5 min: Cough or Sneeze or Pulls Away Muscle Tone 5 min: Active Motion Color 5 min: Body [place], Extremities Blue SCORE 5 MIN: 9 INFANT INFORMATION BABY B Gestational Age at Delivery: 36.3 Gestational Status : Late - 34- 36.6 Weeks Outcome : Liveborn Infant Condition : Stable Infant Sex : Female WEIGHT/LENGTH BABY B Birthweight (gm): 2275 Infant Weight (lb) : 5 Infant Weight (oz): 0 Infant Length (in): 17.75 Infant Length (cm): 45.09 CORD INFORMATION BABY B No. Cord Vessels : 3 Nuchal Cord : N/A Cord Blood Taken : Yes-For Eval (Mom's Blood Type -) Infant Suction : Mouth; Nose
[2019-05-12] MEDS: IBUPROFEN 800 MG TABLET PO SCH ×3 (00:23→12:00)
[2019-05-12] MEDS: KETOROLAC TROMETHAMINE INJ/PF 30 MG/1 ML SDV IV SCH ×3 (06:00→22:55)
[2019-05-12] MEDS: OXYCODONE-ACETAMINOPHEN 5-325 MG TABLET PO PRN ×4 (06:06→20:18)
[2019-05-12 06:33] LABS: HEMATOCRIT 34.9 % (36.0-47.0); HEMOGLOBIN 11.5 g/dL (12.0-15.5); MEAN CORPUSCULAR HEMOGLOBIN 29.6 pg (27.0-33.4); MEAN CORPUSCULAR VOLUME 90 fl (80-97); PLATELET COUNT 191 10^3/uL (150-450); RED BLOOD COUNT 3.89 10^6/uL (3.72-5.28); RED CELL DISTRIBUTION WIDTH 14.6 % (11.5-14.0)
[2019-05-12 06:37] LABS: WHITE BLOOD COUNT 20.3 10^3/uL (4.0-10.5)
--- NOTE | 2019-05-12 08:37 | PDOC PROGRESS REPORT ---
Subjective-OB Progress Note for:: 05/12/19 Subjective: alert and talking, doing well, fernandez out, c/o of uterine cramping, eating without issues, scant lochia Physical Exam (OB) Vital Signs: Temp Pulse Resp BP Pulse Ox 97.6 F 76 16 126/68 H 100 05/12/19 03:45 05/12/19 03:45 05/12/19 03:45 05/12/19 03:45 05/12/19 03:45 Intake & Output 05/11/19 05/12/19 05/13/19 06:59 06:59 06:59 Intake Total 800 Output Total 1400 Balance -600 Weight 65.2 kg - PIH/Pre-Eclampsia Headache: Absent Epigastric Pain: No Visual Changes: No - Dressing Removed: No Closure Type: Surgical Glue - Lochia Lochia Amount: Small 10-25 ml Lochia Color: Rubra/Red - Abdomen Description: Tender, Soft, Round Fundal Description: Firm, Midline Fundal Height: u/u - u/2 Objective-Diagnostic Laboratory: 05/12/19 05:25 05/11/19 05/11/19 05/12/19 17:40 17:40 05:25 WBC 8.3 20.3 H D RBC 3.74 3.89 Hgb 11.2 L 11.5 L Hct 33.8 L 34.9 L MCV 91 90 MCH 30.0 29.6 MCHC 33.2 33.0 RDW 14.8 H 14.6 H Plt Count 187 191 Seg Neutrophils % 74.4 Blood Type O POSITIVE Antibody Screen NEGATIVE Assessment and Plan(PN) - Assessment and Plan (1) Monochorionic diamniotic twin gestation Qualifiers: Trimester: third trimester Qualified Code(s): O30.033 - Twin , monochorionic/diamniotic, third trimester Is this a current diagnosis for this admission?: Yes (2) Polyhydramnios, third trimester, fetus 2 Is this a current diagnosis for this admission?: Yes (4) Sterilization Is this a current diagnosis for this admission?: Yes - Time Spent with Patient Time with patient: Less than 15 minutes Medications reviewed and adjusted accordingly: Yes - Disposition Anticipated Discharge: Home Within: within 24 hours
[2019-05-12] MEDS: PRENATAL VITAMIN W DHA CAPSULE PO SCH (10:26)
[2019-05-12] MEDS: DOCUSATE SODIUM 100 MG CAPSULE PO SCH ×2 (10:26→17:36)
[2019-05-13] MEDS: IBUPROFEN 800 MG TABLET PO SCH ×5 (01:25→17:56)
[2019-05-13] MEDS: OXYCODONE-ACETAMINOPHEN 5-325 MG TABLET PO PRN ×3 (01:28→21:47)
--- NOTE | 2019-05-13 09:04 | PDOC PROGRESS REPORT ---
Subjective-OB Progress Note for:: 05/13/19 Subjective: Doing well, up to BR trying to have BM, eating well, pain under control, babies doing well Physical Exam (OB) Vital Signs: Temp Pulse Resp BP Pulse Ox 98.2 F 53 L 18 98/64 L 98 05/13/19 07:21 05/13/19 07:21 05/13/19 07:21 05/13/19 07:21 05/13/19 07:21 Intake & Output 05/12/19 05/13/19 05/14/19 06:59 06:59 06:59 Intake Total 800 Output Total 1400 Balance -600 Weight 65.2 kg - PIH/Pre-Eclampsia Clonus: Negative Headache: Absent Epigastric Pain: No Visual Changes: No - Dressing Removed: No Incision: Well Approximated Closure Type: Surgical Glue - Lochia Lochia Amount: Small 10-25 ml Lochia Color: Rubra/Red - Abdomen Description: Soft, Round Fundal Description: Firm, Midline Fundal Height: u/u - u/2 Objective-Diagnostic Laboratory: 05/12/19 05:25 Assessment and Plan(PN) - Assessment and Plan (1) Monochorionic diamniotic twin gestation Qualifiers: Trimester: third trimester Qualified Code(s): O30.033 - Twin , monochorionic/diamniotic, third trimester Is this a current diagnosis for this admission?: Yes (2) Polyhydramnios, third trimester, fetus 2 Is this a current diagnosis for this admission?: Yes (3) S/P primary low transverse Is this a current diagnosis for this admission?: Yes (4) Sterilization Is this a current diagnosis for this admission?: Yes - Time Spent with Patient Time with patient: Less than 15 minutes Medications reviewed and adjusted accordingly: Yes - Disposition Anticipated Discharge: Home Within: within 24 hours - WBC today fpr elevated WBC, afebrile
[2019-05-13] MEDS: DOCUSATE SODIUM 100 MG CAPSULE PO SCH ×2 (09:22→17:56)
[2019-05-13] MEDS: PRENATAL VITAMIN W DHA CAPSULE PO SCH (09:22)
[2019-05-13 09:41] LABS: HEMATOCRIT 33.3 % (36.0-47.0); HEMOGLOBIN 10.9 g/dL (12.0-15.5); MEAN CORPUSCULAR HEMOGLOBIN 29.5 pg (27.0-33.4); MEAN CORPUSCULAR HGB CONC 32.8 g/dL (32.0-36.0); MEAN CORPUSCULAR VOLUME 90 fl (80-97); PLATELET COUNT 169 10^3/uL (150-450); RED BLOOD COUNT 3.71 10^6/uL (3.72-5.28); RED CELL DISTRIBUTION WIDTH 14.7 % (11.5-14.0); WHITE BLOOD COUNT 14.2 10^3/uL (4.0-10.5)
[2019-05-13 11:59] LABS: ALBUMIN 2.6 g/dL (3.5-5.0); ALKALINE PHOSPHATASE 165 U/L (38-126); ASPARTATE AMINO TRANSFERASE 29 U/L (14-36); BILIRUBIN,DIRECT 0.1 mg/dL (0.0-0.4); BILIRUBIN,TOTAL 0.2 mg/dL (0.2-1.3); BLOOD UREA NITROGEN 7 mg/dL (7-20); CALCIUM 9.1 mg/dL (8.4-10.2); GLUCOSE 76 mg/dL (75-110); POTASSIUM 4.2 mmol/L (3.6-5.0); TOTAL PROTEIN 5.4 g/dL (6.3-8.2)
[2019-05-13 12:07] LABS: ANION GAP 4 (5-19); CARBON DIOXIDE 25 mmol/L (22-30); CHLORIDE 106 mmol/L (98-107)
--- NOTE | 2019-05-13 13:09 | EKG REPORT ---
SEVERITY:- ABNORMAL ECG - ATRIAL FIBRILLATION, V-RATE 78-120 LOW VOLTAGE THROUGHOUT : Confirmed by: Yaa Salas MD 13-May-2019 13:08:18
--- NOTE | 2019-05-13 14:37 | PDOC CONSULTATION ---
Consultation Consult Date: 05/13/19 Attending physician:: PETR BURNETTE Provider Consulted: MARISOL WOLFE Consult reason:: New onset atrial fibrillation History of Present Illness Admission Date/PCP: 05/11/19 17:41 PETR BURNETTE MD Patient complains of: Tachycardia noted on exam History of Present Illness: NORA MONSON is a 29 year old female with no significant past medical history who was admitted on 05/11/2019 after presented with uterine contractions. Patient underwent with tubal ligation after noted to h ave a breech presentation of her twins. Procedure was done on 05/11/2019. Patient has been stable since procedure but developed atrial fibrillation which was noted on exam. Hospitalist service consulted for evaluation of patient's new onset atrial fibrillation. Patient states that she has never had any prior episodes and has no history of heart disease. Patient denies noting any palpitations, lightheadedness, shortness of breath, chest pain, dizziness. Patient admits to drinking caffeinated tea occasionally. Patient denies any history of thyroid disease. Past Medical History Medical History: None Cardiac Medical History: Denies: Congestive Heart Failure, Coronary Artery Disease, Myocardial Infarction, Hypertension, Pulmonary Embolism Pulmonary Medical History: Denies: Asthma, Chronic Obstructive Pulmonary Disease (COPD) Neurological Medical History: Denies: Hemorrhagic CVA, Ischemic CVA Endocrine Medical History: Denies: Diabetes Mellitus Type 1, Diabetes Mellitus Type 2, Gestational Diabetes, Hyperthyroidism, Hypothyroidism Psychiatric Medical History: Denies: Substance Abuse, Tobacco Dependency Past Surgical History Past Surgical History: Reports: Section Social History Information Source: Patient Lives with: Family Smoking Status: Never Smoker Frequency of Alcohol Use: None - None currently but has occasionally drunk wine in the distant past prior to Hx Recreational Drug Use: No Drugs: None - Advance Directive Resuscitation Status: Full Code Family History Family History: Other - Patient is adopted and does not know family history Parental Family History Reviewed: Yes Children Family History Reviewed: Yes Sibling(s) Family History Reviewed.: Yes Medication/Allergy Home Medications: No.137/Iron/Folic Acd [ Tablet] 1 each PO DAILY #30 tablet 07/06/14 Allergies/Adverse Reactions: No Known Allergies Allergy (Verified 05/11/19 15:49) Review of Systems Constitutional: ABSENT: chills, fever(s), headache(s) Eyes: ABSENT: visual disturbances Cardiovascular: ABSENT: chest pain, dyspnea on exertion, edema, palpitations Respiratory: ABSENT: dyspnea Gastrointestinal: ABSENT: abdominal pain, heartburn Genitourinary: ABSENT: difficulty urinating Musculoskeletal: ABSENT: joint swelling Neurological: ABSENT: confusion, paresthesias Psychiatric: ABSENT: anxiety Endocrine: ABSENT: heat intolerance Physical Exam Vital Signs: Temp Pulse Resp BP Pulse Ox 97.9 F 113 H 16 99/64 L 96 05/13/19 11:10 05/13/19 11:10 05/13/19 11:10 05/13/19 11:10 05/13/19 11:10 Intake & Output 05/12/19 05/13/19 05/14/19 06:59 06:59 06:59 Intake Total 800 Output Total 1400 Balance -600 Weight 65.2 kg General appearance: PRESENT: no acute distress, cooperative Head exam: PRESENT: atraumatic, normocephalic Eye exam: PRESENT: conjunctiva pink, EOMI Mouth exam: PRESENT: moist Neck exam: ABSENT: JVD, tracheal deviation Respiratory exam: PRESENT: clear to auscultation arianne Cardiovascular exam: PRESENT: irregular rhythm, +S1, +S2, tachycardia. ABSENT: diastolic murmur, gallop, rubs, systolic murmur Vascular exam: ABSENT: pallor GI/Abdominal exam: PRESENT: normal bowel sounds, soft. ABSENT: guarding, tenderness Rectal exam: PRESENT: deferred Musculoskeletal exam: PRESENT: ambulatory Neurological exam: PRESENT: alert, awake, oriented to person, oriented to place, oriented to time, oriented to situation Psychiatric exam: PRESENT: normal mood. ABSENT: agitated, anxious Focused psych exam: ABSENT: internal stimuli Results Laboratory Results: 05/13/19 09:18 05/13/19 09:18 05/13/19 05/13/19 05/13/19 09:18 09:18 09:18 WBC 14.2 H RBC 3.71 L Hgb 10.9 L Hct 33.3 L MCV 90 MCH 29.5 MCHC 32.8 RDW 14.7 H Plt Count 169 Sodium 135.3 L Potassium 4.2 Chloride 106 Carbon Dioxide 25 Anion Gap 4 L BUN 7 Creatinine 0.48 L Est GFR ( Amer) > 60 Glucose 76 Calcium 9.1 Magnesium 1.9 Total Bilirubin 0.2 AST 29 Alkaline Phosphatase 165 H Total Protein 5.4 L Albumin 2.6 L TSH 3.91 Impressions: Obstetrics Ultrasound 05/11/19 19:19 IMPRESSION: Twin gestation, as above described. copyright 2010 [employer]- All Rights Reserved Assessment and Plan - Diagnosis (1) New onset atrial fibrillation Is this a current diagnosis for this admission?: Yes Plan: -EKG revealing atrial fibrillation. HR on my exam was 102. Prior documented heart rates show RVR over 110. -TSH and electrolytes within normal limits. A. fib was likely precipitated by stress from delivery. -[id number] score of 1---> would recommend starting aspirin 81 mg daily if ok with OB in light of recent surgery -Recommend starting on smallest dose of metoprolol tartrate. Start 12.5 mg every 12 hours for rate control--> will increase dose as and monitor how BP tolerates -Monitor blood pressure as it is currently soft -Patient will need an echocardiogram for structural evaluation of the heart (can be done inpatient or outpatient) -Avoid caffeinated beverages -AM EKG (2) Atrial fibrillation with RVR Is this a current diagnosis for this admission?: Yes Plan: As above (3) Breech, galen Is this a current diagnosis for this admission?: Yes Plan: Status post (4) S/P primary low transverse Is this a current diagnosis for this admission?: Yes Plan: Management per OB (5) Leukocytosis Is this a current diagnosis for this admission?: Yes Plan: downtrending. Potentially stress induced from surgery. - Plan Summary Summary: Plan discussed with Dr Burnette Will continue to follow. - Time Time Spent with patient: 35 or more minutes
[2019-05-13] MEDS: ASPIRIN 81 MG TABLET, CHEWABLE PO SCH (17:55)
[2019-05-13] MEDS: METOPROLOL TARTRATE 25 MG TABLET PO SCH ×3 (17:57→22:19)
[2019-05-13] MEDS: BISACODYL 10 MG SUPP.RECT PR ONE ×2 (21:48→22:17)
[2019-05-13] MEDS ORDERED: BISACODYL 10 MG SUPP.RECT PR ONE (22:00)
[2019-05-14] MEDS: OXYCODONE-ACETAMINOPHEN 5-325 MG TABLET PO PRN ×2 (01:47→08:36)
[2019-05-14] MEDS: IBUPROFEN 800 MG TABLET PO SCH ×3 (05:19→12:09)
[2019-05-14] MEDS: PRENATAL VITAMIN W DHA CAPSULE PO SCH (09:37)
[2019-05-14] MEDS: DOCUSATE SODIUM 100 MG CAPSULE PO SCH (09:37)
[2019-05-14] MEDS: ASPIRIN 81 MG TABLET, CHEWABLE PO SCH (09:38)
--- NOTE | 2019-05-14 09:52 | PDOC PROGRESS REPORT ---
Subjective-OB Progress Note for:: 05/14/19 Subjective: doing well, OOB in halls, feels fine, wants to go home, pain improved, scant bleeding, Physical Exam (OB) Vital Signs: Temp Pulse Resp BP Pulse Ox 98.2 F 64 18 89/51 L 98 05/14/19 07:49 05/14/19 07:49 05/14/19 07:49 05/14/19 07:49 05/14/19 07:49 - PIH/Pre-Eclampsia Clonus: Negative Headache: Absent Epigastric Pain: No Visual Changes: No - Dressing Removed: No Incision: Well Approximated Closure Type: Surgical Glue - Lochia Lochia Amount: Scant < 10 ml Lochia Color: Rubra/Red - Abdomen Description: Soft, Round, Distended Hernia Present: No Fundal Description: Firm, Midline Fundal Height: u/u - u/2 Objective-Diagnostic Laboratory: 05/13/19 09:18 05/13/19 09:18 05/13/19 05/13/19 09:18 09:18 Sodium 135.3 L Potassium 4.2 Chloride 106 Carbon Dioxide 25 Anion Gap 4 L BUN 7 Creatinine 0.48 L Est GFR ( Amer) > 60 Glucose 76 Calcium 9.1 Magnesium 1.9 Total Bilirubin 0.2 AST 29 Alkaline Phosphatase 165 H Total Protein 5.4 L Albumin 2.6 L TSH 3.91 Assessment and Plan(PN) - Assessment and Plan (1) Monochorionic diamniotic twin gestation Qualifiers: Trimester: third trimester Qualified Code(s): O30.033 - Twin , monochorionic/diamniotic, third trimester Is this a current diagnosis for this admission?: Yes (2) Polyhydramnios, third trimester, fetus 2 Is this a current diagnosis for this admission?: Yes (3) S/P primary low transverse Is this a current diagnosis for this admission?: Yes (4) Sterilization Is this a current diagnosis for this admission?: Yes - Time Spent with Patient Time with patient: Less than 15 minutes Medications reviewed and adjusted accordingly: Yes - Disposition Anticipated Discharge: Home Within: within 24 hours - will discharge and discuss with hospitalist plans
[2019-05-14] MEDS: METOPROLOL TARTRATE 25 MG TABLET PO SCH (09:58)
--- NOTE | 2019-05-14 10:02 | PDOC DISCHARGE SUMMARY ---
Impression - Admit/DC Date/PCP Admission Date/Primary Care Provider: 05/11/19 17:41 PETR BURNETTE MD Discharge Date: 05/14/19 - Discharge Diagnosis (1) Monochorionic diamniotic twin gestation Is this a current diagnosis for this admission?: Yes (2) Polyhydramnios, third trimester, fetus 2 Is this a current diagnosis for this admission?: Yes (3) S/P primary low transverse Is this a current diagnosis for this admission?: Yes (4) Sterilization Is this a current diagnosis for this admission?: Yes - Assessment Summary: Plan discussed with Dr Burnette Will continue to follow. - Additional Information Resuscitation Status: Full Code Discharge Diet: As Tolerated, Regular Discharge Activity: Activity As Tolerated, No Lifting Over 10 Pounds, No Lifting/Push/Pulling, Pelvic Rest Referrals: [facility] [Provider Group] Prescriptions: Oxycodone HCl/Acetaminophen [Percocet 5-325 mg Tablet] 1 tab PO Q4HP PRN #20 tablet PRN Reason: Metoprolol Tartrate [Lopressor 25 mg Tablet] 12.5 mg PO Q12 #60 tablet Ibuprofen [Motrin 800 mg Tablet] 800 mg PO Q6 #60 tablet Home Medications: No.137/Iron/Folic Acd [ Vitamin Tablet] 1 each PO DAILY #30 tablet 07/06/14 Aspirin [Aspirin 81 mg Chewable Tablet] 81 mg PO DAILY tab.chew 05/14/19 Ibuprofen [Motrin 800 mg Tablet] 800 mg PO Q6 #60 tablet 05/14/19 Metoprolol Tartrate [Lopressor 25 mg Tablet] 12.5 mg PO Q12 #60 tablet 05/14/19 Oxycodone HCl/Acetaminophen [Percocet 5-325 mg Tablet] 1 tab PO Q4HP PRN #20 tablet 05/14/19 HPI Gestational Age: 36.3 Reason(s) for Admission: Ceasarean Section-Primary, Twins Admission Note: polyhydramnios Procedures: NST, Ultrasound, Management of Obstetric Complications Intrapartum Procedure(s): : Low Cervical, Transverse Complication(s): Other - atrial fibrillation Hospital Course Hospital Course: routine, post op, developed atrial fib Results Laboratory Results: WBC 14.2 10^3/uL (4.0-10.5) H 05/13/19 09:18 RBC 3.71 10^6/uL (3.72-5.28) L 05/13/19 09:18 Hgb 10.9 g/dL (12.0-15.5) L 05/13/19 09:18 Hct 33.3 % (36.0-47.0) L 05/13/19 09:18 MCV 90 fl (80-97) 05/13/19 09:18 MCH 29.5 pg (27.0-33.4) 05/13/19 09:18 MCHC 32.8 g/dL (32.0-36.0) 05/13/19 09:18 RDW 14.7 % (11.5-14.0) H 05/13/19 09:18 Plt Count 169 10^3/uL (150-450) 05/13/19 09:18 Lymph % (Auto) 19.2 % (13-45) 05/11/19 17:40 [place] % (Auto) 5.5 % (3-13) 05/11/19 17:40 Eos % (Auto) 0.6 % (0-6) 05/11/19 17:40 Baso % (Auto) 0.3 % (0-2) 05/11/19 17:40 Absolute Neuts (auto) 6.2 10^3/uL (1.7-8.2) 05/11/19 17:40 Absolute Lymphs (auto) 1.6 10^3/uL (0.5-4.7) 05/11/19 17:40 Absolute Monos (auto) 0.5 10^3/uL (0.1-1.4) 05/11/19 17:40 Absolute Eos (auto) 0.0 10^3/uL (0.0-0.6) 05/11/19 17:40 Absolute Basos (auto) 0.0 10^3/uL (0.0-0.2) 05/11/19 17:40 Seg Neutrophils % 74.4 % (42-78) 05/11/19 17:40 Sodium 135.3 mmol/L (137-145) L 05/13/19 09:18 Potassium 4.2 mmol/L (3.6-5.0) 05/13/19 09:18 Chloride 106 mmol/L (98-107) 05/13/19 09:18 Carbon Dioxide 25 mmol/L (22-30) 05/13/19 09:18 Anion Gap 4 (5-19) L 05/13/19 09:18 BUN 7 mg/dL (7-20) 05/13/19 09:18 Creatinine 0.48 mg/dL (0.52-1.25) L 05/13/19 09:18 Est GFR ( Amer) > 60 (>60) 05/13/19 09:18 Est GFR (MDRD) Non-Af > 60 (>60) 05/13/19 09:18 Glucose 76 mg/dL (75-110) 05/13/19 09:18 Calcium 9.1 mg/dL (8.4-10.2) 05/13/19 09:18 Magnesium 1.9 mg/dL (1.6-2.3) 05/13/19 09:18 Total Bilirubin 0.2 mg/dL (0.2-1.3) 05/13/19 09:18 Direct Bilirubin 0.1 mg/dL (0.0-0.4) 05/13/19 09:18 Neonat Total Bilirubin Not Reportable 05/13/19 09:18 Neonat Direct Bilirubin Not Reportable 05/13/19 09:18 Neonat Indirect Bili Not Reportable 05/13/19 09:18 AST 29 U/L (14-36) 05/13/19 09:18 ALT 20 U/L (<35) 05/13/19 09:18 Alkaline Phosphatase 165 U/L (38-126) H 05/13/19 09:18 Total Protein 5.4 g/dL (6.3-8.2) L 05/13/19 09:18 Albumin 2.6 g/dL (3.5-5.0) L 05/13/19 09:18 TSH 3.91 uIU/mL (0.47-4.68) 05/13/19 09:18 Urine Opiates Screen NEGATIVE 05/11/19 15:45 Urine Methadone Screen NEGATIVE 05/11/19 15:45 Ur Barbiturates Screen NEGATIVE 05/11/19 15:45 Ur Phencyclidine Scrn NEGATIVE 05/11/19 15:45 Ur Amphetamines Screen NEGATIVE 05/11/19 15:45 U Benzodiazepines Scrn NEGATIVE 05/11/19 15:45 Urine Cocaine Screen NEGATIVE 05/11/19 15:45 U Marijuana (THC) Screen NEGATIVE 05/11/19 15:45 RPR NONREACTIVE (NONREACTIVE) 05/11/19 17:40 Blood Type O POSITIVE 05/11/19 17:40 Antibody Screen NEGATIVE 05/11/19 17:40 Impressions: Obstetrics Ultrasound 05/11/19 19:19 IMPRESSION: Twin gestation, as above described. copyright 2010 [employer]- All Rights Reserved Plan Health Concerns: atrial fibrillation Plan of Treatment: echo, asa, Metropolol Goals: f/u with cardiology or PCP for atrial fib Time Spent: Less than 30 Minutes - rtc Wednesday, Dr. Hernandez will make final decision to discharge today after discussing with hospitalist
--- NOTE | 2019-05-14 11:03 | PDOC PROGRESS REPORT ---
Subjective Progress Note for:: 05/14/19 Subjective:: Patient is doing well today and has no complaints. Denies any shortness of breath chest pain lightheadedness or dizziness. Patient has been ambulating without difficulty. Reason For Visit: Physical Exam Vital Signs: Temp Pulse Resp BP Pulse Ox 98.2 F 64 18 89/51 L 98 05/14/19 07:49 05/14/19 07:49 05/14/19 07:49 05/14/19 07:49 05/14/19 07:49 General appearance: PRESENT: no acute distress, cooperative Head exam: PRESENT: atraumatic Eye exam: PRESENT: EOMI Neck exam: ABSENT: JVD Respiratory exam: PRESENT: clear to auscultation arianne. ABSENT: crackles Cardiovascular exam: PRESENT: RRR, +S1, +S2. ABSENT: diastolic murmur, systolic murmur, tachycardia Vascular exam: PRESENT: normal capillary refill GI/Abdominal exam: PRESENT: normal bowel sounds, soft Rectal exam: PRESENT: deferred Musculoskeletal exam: PRESENT: ambulatory Neurological exam: PRESENT: alert, awake, oriented to person, oriented to place, oriented to time, oriented to situation Psychiatric exam: PRESENT: normal mood Results Laboratory Results: 05/13/19 09:18 05/13/19 09:18 05/13/19 05/13/19 09:18 09:18 Sodium 135.3 L Potassium 4.2 Chloride 106 Carbon Dioxide 25 Anion Gap 4 L BUN 7 Creatinine 0.48 L Est GFR ( Amer) > 60 Glucose 76 Calcium 9.1 Magnesium 1.9 Total Bilirubin 0.2 AST 29 Alkaline Phosphatase 165 H Total Protein 5.4 L Albumin 2.6 L TSH 3.91 Impressions: Obstetrics Ultrasound 05/11/19 19:19 IMPRESSION: Twin gestation, as above described. copyright 2010 [facility]- All Rights Reserved Assessment and Plan - Diagnosis (1) New onset atrial fibrillation Is this a current diagnosis for this admission?: Yes Plan: -EKG today is in normal sinus rhythm at a normal rate -[id number] score of 1---> continue daily aspirin 81 mg -Given soft blood pressures, would recommend to discharge on metoprolol 6.25 mg every 12 hours -Patient will need an echocardiogram for structural evaluation of the heart (can be done inpatient or outpatient based on patient's preference). The echo does not need to be done stat and does not need to delay discharge. -Avoid caffeinated beverages -Patient will need to schedule outpatient follow-up with a primary care provider or film masker (2) galen Rosario Is this a current diagnosis for this admission?: Yes (3) S/P primary low transverse Is this a current diagnosis for this admission?: Yes (4) Leukocytosis Is this a current diagnosis for this admission?: Yes - Plan Summary Summary: Plan discussed with Dr Zheng Will continue to follow. - Time Time Spent with patient: Less than 15 minutes
[2019-05-14 11:28] VITALS: BP 105/62
--- NOTE | 2019-05-14 14:42 | EKG REPORT ---
SEVERITY:- BORDERLINE ECG - SINUS RHYTHM PROBABLE LEFT ATRIAL ABNORMALITY : Confirmed by: Yaa Salas MD 14-May-2019 14:42:19
== END 2019-05-14 12:59 | disposition home or self-care (01) | DRG 783 ==
LOC: LC 15:32 → LR 17:41 → 2S 23:32
PROVIDERS: ADMIT Student in an Organized Health Care Education/Training Program; ATTEND Student in an Organized Health Care Education/Training Program
PROC: 10D00Z1 Extraction of Products of Conception, Low, Open Approach (ICD-10-PCS; principal; 2019-05-11)
PROC: 0UL70CZ Occlusion of Bilateral Fallopian Tubes with Extraluminal Device, Open Approach (ICD-10-PCS; 2019-05-11)
DX: O30.033 Twin pregnancy, monochorionic/diamniotic, third trimester (principal); O60.14X0 Preterm labor third trimester with preterm delivery third trimester, not applicable or unspecified; I97.191 Other postprocedural cardiac functional disturbances following other surgery; Z3A.36 36 weeks gestation of pregnancy; O32.1XX1 Maternal care for breech presentation, fetus 1; O32.1XX2 Maternal care for breech presentation, fetus 2; O40.3XX2 Polyhydramnios, third trimester, fetus 2; I48.91 Unspecified atrial fibrillation; Y83.8 Other surgical procedures as the cause of abnormal reaction of the patient, or of later complication, without mention of misadventure at the time of the procedure; Y92.230 Patient room in hospital as the place of occurrence of the external cause; Z14.1 Cystic fibrosis carrier; Z37.2 Twins, both liveborn; Z30.2 Encounter for sterilization
CPT/HCPCS: 1961; 36415; 59025; 76815; 80053; 80307; 83735; 84443; 85025; 85027; 86592; 86850; 86900; 86901; 88307; 93005; 93010; 94760; 94799; 96372; J0690; J0702; J1170; J1885; J2175; J2210; J2250; J2370; J2405; J2540; J2550; J2590; J3010; J3490

== ENCOUNTER 2019-05-22 16:48 | Inpatient (IN) | payer MEDICAID ==
[2019-05-22 17:26] LABS: APPEARANCE,URINE SLIGHTLY-CLOUDY; BILIRUBIN,URINE NEGATIVE (NEGATIVE); COLOR,URINE YELLOW; GLUCOSE, URINE NEGATIVE (NEGATIVE); KETONES,URINE 20 mg/dL (NEGATIVE); LEUKOCYTE ESTERASE,URINE NEGATIVE (NEGATIVE); NITRITE,URINE NEGATIVE (NEGATIVE); PROTEIN,URINE >=500 mg/dL (NEGATIVE); URINE SPECIFIC GRAVITY 1.026
[2019-05-22] MEDS: CLINDAMYCIN 900 MG/D5W RTU 900 MG/50 ML RTUPB IV SCH (17:58)
[2019-05-22] MEDS ORDERED: ACETAMINOPHEN 325 MG TABLET PO ONE (18:00)
[2019-05-22 18:21] LABS: HEMOGLOBIN 11.3 g/dL (12.0-15.5); MEAN CORPUSCULAR HGB CONC 33.3 g/dL (32.0-36.0); MEAN CORPUSCULAR VOLUME 90 fl (80-97); PLATELET COUNT 346 10^3/uL (150-450); RED BLOOD COUNT 3.77 10^6/uL (3.72-5.28); RED CELL DISTRIBUTION WIDTH 15.2 % (11.5-14.0); WHITE BLOOD COUNT 14.1 10^3/uL (4.0-10.5)
[2019-05-22] MEDS: OXYCODONE HCL IR 5 MG TABLET PO PRN (18:25)
[2019-05-22 18:39] LABS: ALBUMIN 2.9 g/dL (3.5-5.0); ALKALINE PHOSPHATASE 151 U/L (38-126); ANION GAP 13 (5-19); ASPARTATE AMINO TRANSFERASE 24 U/L (14-36); BILIRUBIN,DIRECT 0.4 mg/dL (0.0-0.4); BILIRUBIN,TOTAL 0.7 mg/dL (0.2-1.3); BLOOD UREA NITROGEN 14 mg/dL (7-20); CALCIUM 8.8 mg/dL (8.4-10.2); CARBON DIOXIDE 20 mmol/L (22-30); CHLORIDE 108 mmol/L (98-107); GLUCOSE 80 mg/dL (75-110); POTASSIUM 3.4 mmol/L (3.6-5.0); TOTAL PROTEIN 6.2 g/dL (6.3-8.2)
[2019-05-22 18:50] LABS: ABSOLUTE LYMPHOCYTES# (MANUAL) 0.6 10^3/uL (0.5-4.7); ABSOLUTE MONOCYTES # (MANUAL) 0.6 10^3/uL (0.1-1.4); ANISOCYTOSIS SLIGHT; BAND NEUTROPHILS % (MANUAL) 7 % (3-5); BASOPHILS % (MANUAL) 0 % (0-2); EOSINOPHILS % (MANUAL) 0 % (0-6); LYMPHOCYTES % (MANUAL) 3 % (13-45); MONOCYTES % (MANUAL) 4 % (3-13); PLATELET COMMENT ADEQUATE; SEGMENTED NEUTROPHILS % (MAN) 85 % (42-78); TOTAL CELLS COUNTED 100
--- NOTE | 2019-05-22 20:48 | PDOC PROGRESS REPORT ---
Subjective Progress Note for:: 05/22/19 Subjective:: This 29 yo , who underwent a primary low transverse section secondary to breech twins, last week, presented to the office today complaining of a fever and swelling at the incision site. On examination, her incision is indurated and edematous. No erythema is noted. However, the edema extends into the mons and labia. Patient had a fever of 100.7 in the office today. Patient stated that her symptoms all started today. She has no complaints of incisional drainage Reason For Visit: 24 HOUR OBSERVATION Physical Exam - Physical Exam Vital Signs: Temp Pulse Resp BP Pulse Ox 102.4 F H 05/22/19 17:00 Intake & Output 05/21/19 05/22/19 05/23/19 06:59 06:59 06:59 Output Total 100 Balance -100 Weight 55.792 kg General appearance: PRESENT: no acute distress Respiratory exam: PRESENT: clear to auscultation arianne Cardiovascular exam: PRESENT: RRR GI/Abdominal exam: PRESENT: normal bowel sounds, soft, other - Incision indurated and edematous; no erythema Extremities exam: ABSENT: calf tenderness, clubbing, full ROM, joint swelling, pedal edema, tenderness, +1 edema, +2 edema, other - Gynecological Exam Labia: other - some bilateral edema extending from the incision Result Laboratory Results: 05/22/19 18:13 05/22/19 18:13 05/22/19 05/22/19 05/22/19 17:08 18:13 18:13 WBC 14.1 H RBC 3.77 Hgb 11.3 L Hct 34.0 L MCV 90 MCH 30.0 MCHC 33.3 RDW 15.2 H Plt Count 346 Seg Neutrophils % Not Reportable Sodium 140.6 Potassium 3.4 L Chloride 108 H Carbon Dioxide 20 L Anion Gap 13 BUN 14 Creatinine 0.51 L Est GFR ( Amer) > 60 Glucose 80 Calcium 8.8 Total Bilirubin 0.7 AST 24 Alkaline Phosphatase 151 H Total Protein 6.2 L Albumin 2.9 L Urine Color YELLOW Urine Appearance SLIGHTLY-CLOUDY Urine pH 5.0 Ur Specific [place] 1.026 Urine Protein >=500 H Urine Glucose (UA) NEGATIVE Urine Ketones 20 H Urine Blood SMALL H Urine Nitrite NEGATIVE Ur Leukocyte Esterase NEGATIVE Urine WBC (Auto) 4 Urine RBC (Auto) 2 Assessment & Plan - Diagnosis (1) Wound infection after surgery Is this a current diagnosis for this admission?: Yes (2) S/P primary low transverse Is this a current diagnosis for this admission?: Yes - Time Time Spent with patient: 15-24 minutes Medications reviewed and adjusted accordingly: Yes Anticipated discharge: Home Within: within 36 hours - Inpatient Certification Based on my medical assessment, after consideration of the patient's comorbidities, presenting symptoms, or acuity I expect that the services needed warrant INPATIENT care.: Yes I certify that my determination is in accordance with my understanding of Medicare's requirements for reasonable and necessary INPATIENT services [42 CFR 412.3e].: Yes Medical Necessity: Need for IV Antibiotics - Plan Summary Plan Summary: 1. Continue IV antibiotics until afebrile x 24 hrs 2. Cultures pending
[2019-05-22] MEDS ORDERED: ONDANSETRON HCL INJ/PF 4 MG/2 ML SDV IV PRN (20:50)
[2019-05-22] MEDS ORDERED: PROMETHAZINE HCL INJ 25 MG/1 ML VIAL IV PRN (20:52)
[2019-05-22] MEDS: GENTAMICIN SULFATE 120 MG in DEXTROSE 5%-WATER 100 ML IV SCH (21:32)
[2019-05-22] MEDS ORDERED: METOPROLOL TARTRATE 25 MG TABLET PO SCH (22:00)
[2019-05-22] MEDS: AMPICILLIN SODIUM 1 GM in NORMAL SALINE 50 ML IV SCH (23:02)
[2019-05-23] MEDS: CLINDAMYCIN 900 MG/D5W RTU 900 MG/50 ML RTUPB IV SCH ×3 (02:06→17:59)
[2019-05-23] MEDS: ACETAMINOPHEN 325 MG TABLET PO PRN ×2 (02:17→08:58)
[2019-05-23] MEDS: GENTAMICIN SULFATE 120 MG in DEXTROSE 5%-WATER 100 ML IV SCH ×3 (03:23→17:03)
[2019-05-23] MEDS: IBUPROFEN 800 MG TABLET PO PRN ×3 (03:37→21:27)
[2019-05-23] MEDS: AMPICILLIN SODIUM 1 GM in NORMAL SALINE 50 ML IV SCH ×5 (04:23→18:51)
[2019-05-23] MEDS: DEXTROSE 5%-NORMAL SALINE 1,000 ML IV PRN ×2 (08:00→21:36)
[2019-05-23 08:18] LABS: HEMATOCRIT 30.6 % (36.0-47.0); HEMOGLOBIN 10.2 g/dL (12.0-15.5); MEAN CORPUSCULAR HEMOGLOBIN 29.7 pg (27.0-33.4); MEAN CORPUSCULAR HGB CONC 33.3 g/dL (32.0-36.0); MEAN CORPUSCULAR VOLUME 89 fl (80-97); PLATELET COUNT 337 10^3/uL (150-450); RED BLOOD COUNT 3.43 10^6/uL (3.72-5.28); RED CELL DISTRIBUTION WIDTH 15.5 % (11.5-14.0); WHITE BLOOD COUNT 18.5 10^3/uL (4.0-10.5)
[2019-05-23 08:37] LABS: ALBUMIN 2.2 g/dL (3.5-5.0); ALKALINE PHOSPHATASE 126 U/L (38-126); ANION GAP 8 (5-19); ASPARTATE AMINO TRANSFERASE 17 U/L (14-36); BILIRUBIN,DIRECT 0.2 mg/dL (0.0-0.4); BILIRUBIN,TOTAL 0.6 mg/dL (0.2-1.3); BLOOD UREA NITROGEN 10 mg/dL (7-20); CARBON DIOXIDE 23 mmol/L (22-30); CHLORIDE 108 mmol/L (98-107); GLUCOSE 88 mg/dL (75-110); TOTAL PROTEIN 4.6 g/dL (6.3-8.2)
[2019-05-23 08:40] LABS: POTASSIUM 2.7 mmol/L (3.6-5.0)
[2019-05-23 08:46] LABS: ABSOLUTE LYMPHOCYTES# (MANUAL) 0.9 10^3/uL (0.5-4.7); ABSOLUTE MONOCYTES # (MANUAL) 0.9 10^3/uL (0.1-1.4); BAND NEUTROPHILS % (MANUAL) 1 % (3-5); BASOPHILS % (MANUAL) 0 % (0-2); EOSINOPHILS % (MANUAL) 1 % (0-6); LYMPHOCYTES % (MANUAL) 5 % (13-45); MONOCYTES % (MANUAL) 5 % (3-13); SEGMENTED NEUTROPHILS % (MAN) 88 % (42-78); TOTAL CELLS COUNTED 100
[2019-05-23 08:48] LABS: ANISOCYTOSIS SLIGHT; PLATELET COMMENT ADEQUATE; PLATELET LARGE PRESENT; POLYCHROMASIA SLIGHT
--- NOTE | 2019-05-23 09:41 | EKG REPORT ---
SEVERITY:- ABNORMAL ECG - SINUS RHYTHM LEFT ATRIAL ABNORMALITY LEFT AXIS DEVIATION BORDERLINE T ABNORMALITIES, ANTERIOR LEADS BORDERLINE PROLONGED QT INTERVAL : Confirmed by: Heriberto Hutchison 23-May-2019 09:40:57
[2019-05-23] MEDS: OXYCODONE HCL IR 5 MG TABLET PO PRN ×2 (13:42→21:28)
[2019-05-23 18:36] LABS: GENTAMICIN-TROUGH 3.2 ug/mL (<2.0)
[2019-05-24] MEDS: ACETAMINOPHEN 325 MG TABLET PO PRN (00:01)
[2019-05-24] MEDS: AMPICILLIN SODIUM 1 GM in NORMAL SALINE 50 ML IV SCH ×5 (00:02→20:26)
[2019-05-24] MEDS ORDERED: MAGNESIUM HYDROXIDE SUSP 30 ML UDCUP PO PRN (00:14)
[2019-05-24] MEDS: CLINDAMYCIN 900 MG/D5W RTU 900 MG/50 ML RTUPB IV SCH ×3 (01:23→17:54)
[2019-05-24] MEDS: DEXTROSE 5%-NORMAL SALINE 1,000 ML IV PRN (08:06)
[2019-05-24] MEDS: OXYCODONE HCL IR 5 MG TABLET PO PRN ×2 (08:06→19:09)
[2019-05-24 08:13] LABS: HEMATOCRIT 31.4 % (36.0-47.0); HEMOGLOBIN 10.3 g/dL (12.0-15.5); MEAN CORPUSCULAR HEMOGLOBIN 29.5 pg (27.0-33.4); MEAN CORPUSCULAR HGB CONC 32.9 g/dL (32.0-36.0); MEAN CORPUSCULAR VOLUME 90 fl (80-97); PLATELET COUNT 341 10^3/uL (150-450); RED BLOOD COUNT 3.51 10^6/uL (3.72-5.28); RED CELL DISTRIBUTION WIDTH 15.5 % (11.5-14.0); WHITE BLOOD COUNT 18.1 10^3/uL (4.0-10.5)
[2019-05-24] MEDS ORDERED: GENTAMICIN SULFATE 120 MG in DEXTROSE 5%-WATER 100 ML IV SCH (10:00)
[2019-05-24] MEDS: IBUPROFEN 800 MG TABLET PO PRN ×2 (10:26→18:35)
[2019-05-24] MEDS ORDERED: GLYCERIN (PEDIATRIC) SUPP.RECT PR ONE (11:30)
[2019-05-24 13:20] LABS: PROTHROMBIN TIME 16.3 SEC (11.4-15.4)
[2019-05-24 13:21] LABS: PARTIAL THROMBOPLASTIN TIME 36.9 SEC (23.5-35.8)
[2019-05-24 13:33] LABS: ALBUMIN 2.1 g/dL (3.5-5.0); ALKALINE PHOSPHATASE 125 U/L (38-126); ANION GAP 8 (5-19); ASPARTATE AMINO TRANSFERASE 13 U/L (14-36); BILIRUBIN,DIRECT 0.1 mg/dL (0.0-0.4); BILIRUBIN,TOTAL 0.4 mg/dL (0.2-1.3); BLOOD UREA NITROGEN 7 mg/dL (7-20); CALCIUM 8.2 mg/dL (8.4-10.2); CARBON DIOXIDE 23 mmol/L (22-30); CHLORIDE 109 mmol/L (98-107); GLUCOSE 86 mg/dL (75-110); TOTAL PROTEIN 4.8 g/dL (6.3-8.2)
[2019-05-24 13:35] LABS: POTASSIUM 2.7 mmol/L (3.6-5.0)
--- NOTE | 2019-05-24 13:51 | RADIOLOGY REPORT (SQ) ---
EXAM DESCRIPTION: CT ABD/PELVIS WITH IV ONLY COMPLETED DATE/TIME: 05/24/2019 1:37 pm REASON FOR STUDY: incisional abcess 13days COMPARISON: None. TECHNIQUE: CT scan of the abdomen and pelvis performed using helical scanning technique with dynamic intravenous contrast injection. No oral contrast. Images reviewed with lung, soft tissue, and bone windows. Reconstructed coronal and sagittal MPR images reviewed. Delayed images for evaluation of the urinary system also acquired. All images stored on PACS. All CT scanners at this facility use dose modulation, iterative reconstruction, and/or weight based d osing when appropriate to reduce radiation dose to as low as reasonably achievable (ALARA). [facility]: Dose Right [facility]: CareDose [facility]: Dose Right [facility]: Teradose 4D [facility]: EyeNetra CONTRAST TYPE AND DOSE: contrast/concentration: Isovue 350.00 mg/ml; Total Contrast Delivered: 64.0 ml; Total Saline Delivered: 65.0 ml RENAL FUNCTION: None required. The patient is less than 50 years old. RADIATION DOSE: CT Rad equipment meets quality standard of care and radiation dose reduction techniq ues were employed. CTDIvol: 3.8 - 4.5 mGy. DLP: 434 mGy-cm.. LIMITATIONS: None. FINDINGS: LOWER CHEST: Trace bilateral pleural effusions. LIVER: Normal size. No masses. No dilated ducts. SPLEEN: Normal size. No focal lesions. PANCREAS: No masses. No significant calcifications. No adjacent inflammation or peripancreatic fluid collections. Pancreatic duct not dilated. GALLBLADDER: No identified stones by CT criteria. No inflammatory changes to suggest cholecystitis. ADRENAL GLANDS: No significant masses or asymmetry. RIGHT KIDNEY AND URETER: No solid masses. No significant calcifications. No hydronephrosis or hyd roureter. LEFT KIDNEY AND URETER: No solid masses. No significant calcifications. No hydronephrosis or hydr oureter. AORTA AND VESSELS: No aneurysm. No dissection. Renal arteries, SMA, celiac without stenosis. RETROPERITONEUM: No retroperitoneal adenopathy, hemorrhage or masses. BOWEL AND PERITONEAL CAVITY: No masses or inflammatory changes. No free fluid or peritoneal masses. APPENDIX: Normal. PELVIS: Enlarged uterus with fluid and tiny air foci within the endometrial cavity (series 602, image 39). Bilateral tubal ligation clips. No free fluid. Normal bladder. ABDOMINAL WALL: There is a low transverse abdominal incision with a circumscribed fluid collection of the internal aspect of the peritoneal surface measuring 4.0 x 2.0 x 5.4 cm extending superiorly from the incision margin (series 2, image 75, series 602, image 39). BONES: No significant or acute findings. OTHER: No other significant finding. IMPRESSION: 1. There is a low transverse abdominal incision with a circumscribed fluid collection of the internal aspect of the peritoneal surface measuring 4.0 x 2.0 x 5.4 cm extending superiorly from the incision margin (series 2, image 75, series 602, image 39). This is nonspecific and may reflect postoperative hematoma/seroma or alternately abscess depending upon clinical presentation. 2. Enlarged uterus with fluid and tiny air foci within the endometrial cavity (series 602, image 39), again nonspecific in the setting. TECHNICAL DOCUMENTATION: JOB ID: [id number] Quality ID # 436: Final reports with documentation of one or more dose reduction techniques (e.g., Au tomated exposure control, adjustment of the mA and/or kV according to patient size, use of iterative reconstruction technique) 2010 [employer]- All Rights Reserved Reading location - IP/workstation name: [email or web address]
[2019-05-24] MEDS ORDERED: MIDAZOLAM 2 MG/2 ML INJ ONE (14:23)
[2019-05-24] MEDS ORDERED: FENTANYL CITRATE INJ/PF 100 MCG/2 ML AMPUL ONE (14:23)
--- NOTE | 2019-05-24 15:45 | RADIOLOGY REPORT (SQ) ---
EXAM DESCRIPTION: CT DRAINAGE RETRO/PERITONEAL COMPLETED DATE/TIME: 05/24/2019 3:29 pm REASON FOR STUDY: INCISIONAL ABSCESS COMPARISON: CT abdomen pelvis done earlier the same day. FLUORO TIME: 2.3 seconds 18 images saved to PACS. LIMITATIONS: None. PROCEDURE: After obtaining informed consent, the patient was brought to the CT suite and was placed supine on the CT gurney. The patient was prepped and draped in the usual sterile fashion . Axial lauri ges were obtained for targeting of theanterior abdominal wall fluid collection. An appropriate access site was selected. IV conscious sedation was administered and physician direction by the registered nurse using 1.0 milligrams of Versed and 50 micrograms of fentanyl. Physiologic monitoring was provi ded before, during, and after sedation. The total sedation time was 15 minutes. Documentation face to face time, the performing proceduralist, spent monitoring the patient: 15minute s. Under CT fluoroscopic guidance small pocket of fluid was cannulated. Approximately 8 mL of serosangu ineous purulent fluid was removed. Samples were sent to pathology for evaluation. IMPRESSION: Successful CT-guided aspiration of the small fluid collection in the anterior abdominal wall. COMMENT: Patient medication list reviewed:Yes- Quality ID# 130:Eligible professional attests to docu menting in the medical record they obtained, updated, or reviewed the patient's current medications. Quality ID #76: The patient was prepped and draped using maximum sterile barrier technique including cap, mask, sterile gown, sterile gloves, a large sterile sheet, hand hygiene, and 2% Chlorhexidine fo r cutaneous antisepsis. When ultrasound is used, sterile ultrasound techniques are followed requiring sterile gel and sterile probes. Quality ID 145: Final reports for procedures using fluoroscopy that document radiation exposure barbara brittany, or exposure time and number of fluorographic images (if radiation exposure indices are not avail able) Quality ID# 436: Final reports with documentation of one or more dose reduction techniques (e.g., Aut omated exposure control, adjustment of the mA and/or kV according to patient size, use of iterative r econstruction technique) TECHNICAL DOCUMENTATION: JOB ID: [id number] [email or web address]- All Rights Reserved rev Reading location - IP/workstation name: [email or web address]
[2019-05-24] MEDS: POTASSIUM CHLORIDE 20 MEQ/50 ML RTU IV SCH ×2 (15:51→17:53)
--- NOTE | 2019-05-24 17:08 | PDOC PROGRESS REPORT ---
<MIKAYLA CORREA M - Last Filed: 05/24/19 16:51> Subjective Progress Note for:: 05/24/19 Subjective:: 29yo L5 admitted for incisional abscess. Pt is 13 days post primary for breech with BTL. Pt. with abdominal pain and constipation as well as vaginal and incisional edema. On exam incision is non-erythematous and palpable abscess around incision along with left labial and abdominal edema that is nontender. Received antibiotics since admission and with temperature ranging from 102.7 to normal. Potassium also low and K rider given yesterday. Pt denies any other type of discomfort at this time. Reason For Visit: WOUND INFECTION Physical Exam - Physical Exam Vital Signs: Temp Pulse Resp BP Pulse Ox 98.5 F 103 H 16 105/64 100 05/24/19 16:16 05/24/19 16:16 05/24/19 16:16 05/24/19 16:16 05/24/19 16:16 Intake & Output 05/23/19 05/24/19 05/25/19 06:59 06:59 06:59 Intake Total 350 2850 400 Output Total 750 1350 Balance -400 1500 400 Weight 55.792 kg General appearance: PRESENT: other - visual discomfort GI/Abdominal exam: PRESENT: tenderness - on right side of incision edema also along incision and left labia majora Extremities exam: PRESENT: full ROM Neurological exam: PRESENT: alert, oriented to person, oriented to place, oriented to time, oriented to situation Psychiatric exam: PRESENT: appropriate affect Skin exam: PRESENT: dry, normal color - Gynecological Exam Labia: other - some bilateral edema extending from the incision Result Laboratory Results: 05/24/19 07:37 05/24/19 12:59 05/24/19 05/24/19 07:37 12:59 WBC 18.1 H RBC 3.51 L Hgb 10.3 L Hct 31.4 L MCV 90 MCH 29.5 MCHC 32.9 RDW 15.5 H Plt Count 341 Sodium 139.7 Potassium 2.7 L* Chloride 109 H Carbon Dioxide 23 Anion Gap 8 BUN 7 Creatinine 0.60 Est GFR ( Amer) > 60 Glucose 86 Calcium 8.2 L Total Bilirubin 0.4 AST 13 L Alkaline Phosphatase 125 Total Protein 4.8 L Albumin 2.1 L 05/22/19 17:08 Clean Catch Midstream Urine Culture - Final Mixed Urogenital Magdalena Impressions: Retroperitoneal Abscess Drainage 05/24/19 00:00 IMPRESSION: Successful CT-guided aspiration of the small fluid collection in the anterior abdominal wall. Abdomen/Pelvis CT 05/24/19 12:03 IMPRESSION: 1. There is a low transverse abdominal incision with a circumscribed fluid collection of the internal aspect of the peritoneal surface measuring 4.0 x 2.0 x 5.4 cm extending superiorly from the incision margin (series 2, image 75, series 602, image 39). This is nonspecific and may reflect postoperative hematoma/seroma or alternately abscess depending upon clinical presentation. 2. Enlarged uterus with fluid and tiny air foci within the endometrial cavity (series 602, image 39), again nonspecific in the setting. Assessment & Plan - Diagnosis (1) Hypokalemia Is this a current diagnosis for this admission?: Yes Plan: k-rider ordered per Dr. Burnette and Hospitalist communications intern contacted for consult. (2) Wound infection after surgery Is this a current diagnosis for this admission?: Yes Plan: pt sent to CT for scan and possible drainage of abscess which was successful and pt reports some pain relief after procedure (3) S/P primary low transverse Is this a current diagnosis for this admission?: Yes Plan: delivered - Time Time Spent with patient: 15-24 minutes Level of Care: MEDICAL Medications reviewed and adjusted accordingly: Yes Anticipated discharge: Home Within: Other - 48hrs afebrile per MD communications intern. <PETR BURNETTE - Last Filed: 05/24/19 18:42> Subjective Subjective:: Pt reveals that she was doing a lot of things on wednesday before she began having swelling. She has been doing laundry and picking up things that were not within weight requirement. Reviewed with patient that when she goes home that she should not lift anything heavier than babies. Reviewed labs and consults that were ordered. Reviewed CT drainage recommended and done. All questions answered Reason For Visit: WOUND INFECTION Physical Exam - Physical Exam Vital Signs: Temp Pulse Resp BP Pulse Ox 98.5 F 103 H 16 105/64 100 05/24/19 16:16 05/24/19 16:16 05/24/19 16:16 05/24/19 16:16 05/24/19 16:16 Intake & Output 05/23/19 05/24/19 05/25/19 06:59 06:59 06:59 Intake Total 350 2850 450 Output Total 750 1350 Balance -400 1500 450 Weight 55.792 kg Result Laboratory Results: 05/24/19 07:37 05/24/19 12:59 05/24/19 05/24/19 07:37 12:59 WBC 18.1 H RBC 3.51 L Hgb 10.3 L Hct 31.4 L MCV 90 MCH 29.5 MCHC 32.9 RDW 15.5 H Plt Count 341 Sodium 139.7 Potassium 2.7 L* Chloride 109 H Carbon Dioxide 23 Anion Gap 8 BUN 7 Creatinine 0.60 Est GFR ( Amer) > 60 Glucose 86 Calcium 8.2 L Total Bilirubin 0.4 AST 13 L Alkaline Phosphatase 125 Total Protein 4.8 L Albumin 2.1 L 05/22/19 17:08 Clean Catch Midstream Urine Culture - Final Mixed Urogenital Magdalena Impressions: Retroperitoneal Abscess Drainage 05/24/19 00:00 IMPRESSION: Successful CT-guided aspiration of the small fluid collection in the anterior abdominal wall. Abdomen/Pelvis CT 05/24/19 12:03
[2019-05-24] MEDS ORDERED: NORMAL SALINE 1000 ML 1,000 ML IV ONE (17:36)
--- NOTE | 2019-05-24 17:42 | PDOC CONSULTATION ---
Consultation Consult Date: 05/24/19 Attending physician:: MIKAYLA CORREA Provider Consulted: MARISOL WOLFE Consult reason:: hypokalemia History of Present Illness Admission Date/PCP: 05/23/19 08:48 IAN DEE MD Patient complains of: abdominal pain and vomiting History of Present Illness: NORA MONSON is a 29 year old female with recent delivery of twin via Csection a little over a week ago and recently diagnosed Atrial fibrillation. Patient is known to me from my prior consultation for her AFib. On this occasion, patient presented about 2 days ago with c/o low abdominal pain and induration around the site of her surgical incision. Patient was noted to have an intra-abdominal abscess surrounding the surgical wound confirmed on the CT scan. She was taken today for abscess drainage. During patient stay since yesterday patient has been noted to be persistently hypokalemic with potassium of 2.7 despite repletion's. Hospitalist consulted for help with management of hyperkalemia guidance with antibiotic regimen. Patient currently acknowledges having several episodes of vomiting yesterday. She denies any diarrhea. She states that the only meds she took at home where the metoprolol, oxycodone and vitamins. She denies noticing any palpitations. Patient had one bowel movement today after Dulcolax. Past Medical History Cardiac Medical History: Reports: Atrial Fibrillation Denies: Congestive Heart Failure, Coronary Artery Disease, Myocardial Infarction, Hypertension, Pulmonary Embolism Pulmonary Medical History: Denies: Asthma, Bronchitis, Chronic Obstructive Pulmonary Disease (COPD), Pneumonia, Tuberculosis Neurological Medical History: Denies: Seizures Endocrine Medical History: Denies: Diabetes Mellitus Type 1, Diabetes Mellitus Type 2, Hyperthyroidism, Hypothyroidism Renal/ Medical History: Denies: End Stage Renal Disease GI Medical History: Denies: Cirrhosis, Gastroesophageal Reflux Disease Musculoskeltal Medical History: Denies: Arthritis Psychiatric Medical History: Denies: Bipolar Disorder, Depression Hematology: Denies: Anemia, Bleeding Tendencies Past Surgical History Past Surgical History: Reports: Section Social History Smoking Status: Never Smoker Frequency of Alcohol Use: None - None currently but has occasionally drunk wine in the distant past prior to Hx Recreational Drug Use: No Drugs: None Family History Family History: Other - Patient is adopted and does not know family history Parental Family History Reviewed: Yes Children Family History Reviewed: NA Sibling(s) Family History Reviewed.: NA Medication/Allergy Home Medications: Ibuprofen [Motrin 800 mg Tablet] 800 mg PO Q6 05/22/19 Metoprolol Tartrate [Lopressor 25 mg Tablet] 25 mg PO Q12 05/22/19 Oxycodone HCl/Acetaminophen [Percocet 5-325 mg Tablet] 1 tab PO Q4HP PRN 05/22/19 Allergies/Adverse Reactions: No Known Allergies Allergy (Verified 05/11/19 15:49) Review of Systems Constitutional: PRESENT: fever(s) - Initially on admission but no currently. ABSENT: chills Eyes: ABSENT: visual disturbances Nose, Mouth, and Throat: ABSENT: sore throat Cardiovascular: ABSENT: chest pain, dyspnea on exertion, edema Respiratory: ABSENT: cough, dyspnea Gastrointestinal: PRESENT: abdominal pain. ABSENT: dysphagia Genitourinary: ABSENT: difficulty urinating, dysuria Integumentary: ABSENT: diaphoresis Neurological: ABSENT: focal weakness, lack of coordination Psychiatric: ABSENT: anxiety Endocrine: ABSENT: polyuria Hematologic/Lymphatic: ABSENT: easy bruising Physical Exam Vital Signs: Temp Pulse Resp BP Pulse Ox 98.5 F 103 H 16 105/64 100 05/24/19 16:16 05/24/19 16:16 05/24/19 16:16 05/24/19 16:16 05/24/19 16:16 Intake & Output 05/23/19 05/24/19 05/25/19 06:59 06:59 06:59 Intake Total 350 2850 400 Output Total 750 1350 Balance -400 1500 400 Weight 55.792 kg General appearance: PRESENT: no acute distress, cooperative Head exam: PRESENT: normocephalic Eye exam: PRESENT: EOMI Mouth exam: PRESENT: moist Neck exam: ABSENT: JVD, tracheal deviation Respiratory exam: PRESENT: clear to auscultation arianne, symmetrical, unlabored. ABSENT: tachypnea, wheezes Cardiovascular exam: PRESENT: RRR, +S1, +S2, tachycardia. ABSENT: irregular rhythm, systolic murmur GI/Abdominal exam: PRESENT: normal bowel sounds, tenderness, other - Surgical site showing indurated scar without much drainage currently. ABSENT: distended, soft Rectal exam: PRESENT: deferred Neurological exam: PRESENT: alert, awake, oriented to person, oriented to place, oriented to situation Psychiatric exam: PRESENT: normal mood Results Laboratory Results: 05/24/19 07:37 05/24/19 12:59 05/24/19 05/24/19 07:37 12:59 WBC 18.1 H RBC 3.51 L Hgb 10.3 L Hct 31.4 L MCV 90 MCH 29.5 MCHC 32.9 RDW 15.5 H Plt Count 341 Sodium 139.7 Potassium 2.7 L* Chloride 109 H Carbon Dioxide 23 Anion Gap 8 BUN 7 Creatinine 0.60 Est GFR ( Amer) > 60 Glucose 86 Calcium 8.2 L Total Bilirubin 0.4 AST 13 L Alkaline Phosphatase 125 Total Protein 4.8 L Albumin 2.1 L 05/22/19 17:08 Clean Catch Midstream Urine Culture - Final Mixed Urogenital Magdalena Impressions: Retroperitoneal Abscess Drainage 05/24/19 00:00 IMPRESSION: Successful CT-guided aspiration of the small fluid collection in the anterior abdominal wall. Abdomen/Pelvis CT 05/24/19 12:03 IMPRESSION: 1. There is a low transverse abdominal incision with a circumscribed fluid collection of the internal aspect of the peritoneal surface measuring 4.0 x 2.0 x 5.4 cm extending superiorly from the incision margin (series 2, image 75, series 602, image 39). This is nonspecific and may reflect postoperative hematoma/seroma or alternately abscess depending upon clinical presentation. 2. Enlarged uterus with fluid and tiny air foci within the endometrial cavity (series 602, image 39), again nonspecific in the setting. Assessment and Plan - Diagnosis (1) Hypokalemia Is this a current diagnosis for this admission?: Yes Plan: I have currently reviewed patient's medication regimen and did not find any potential cause of her hypokalemia. The main contributing factor I believe to have been had episodes of vomiting yesterday. Patient is receiving 20 mEq x 2 of potassium chloride currently. I will place an extra 20 mEq x 2 of IV potassium chloride to be started around 8 PM and to be given with 40 mEq of p.o. potassium. Check a.m. magnesium level. (2) Sepsis following intra-abdominal surgery Is this a current diagnosis for this admission?: Yes Plan: Follow-up culture from drainage and blood cultures Currently afebrile Noted patient is currently tachycardic may benefit from 1 to 2 L of normal saline bolus. I will place 1 L bolus now. My preference for antibiotic regimen for intra-abdominal abscess would be ceftriaxone 2 g IV daily and Flagyl 500 mg IV every 8 hours only. However ampicillin and clindamycin will also suffice. Recommend discontinuing gentamicin. (3) Atrial fibrillation Is this a current diagnosis for this admission?: Yes Plan: The patient is tachycardic, patient's heart rhythm is regular and as such patient is not currently in A. fib. Recommend continuing her metoprolol at the home dose. (4) Vomiting Is this a current diagnosis for this admission?: Yes Plan: Agree with Yohan as needed - Time Time Spent with patient: 35 or more minutes
[2019-05-24] MEDS: POTASSI CL 20 MEQ/50 ML RIDER 20 MEQ/50 ML RTUPB IV SCH ×2 (20:11→21:48)
[2019-05-24] MEDS ORDERED: POTASSIUM CHLORIDE 10 MEQ CAPSULE.ER PO ONE (20:30)
[2019-05-24] MEDS ORDERED: METOPROLOL TARTRATE 25 MG TABLET PO SCH (22:00)
[2019-05-25] MEDS: ACETAMINOPHEN 325 MG TABLET PO PRN ×2 (00:52→18:39)
[2019-05-25] MEDS: CLINDAMYCIN 900 MG/D5W RTU 900 MG/50 ML RTUPB IV SCH ×3 (01:16→18:15)
[2019-05-25] MEDS: OXYCODONE HCL IR 5 MG TABLET PO PRN ×4 (03:17→21:51)
[2019-05-25] MEDS: AMPICILLIN SODIUM 1 GM in NORMAL SALINE 50 ML IV SCH ×4 (03:18→21:39)
[2019-05-25] MEDS: IBUPROFEN 800 MG TABLET PO PRN (05:42)
[2019-05-25] MEDS: DEXTROSE 5%-NORMAL SALINE 1,000 ML IV PRN ×2 (05:43→18:15)
[2019-05-25 06:14] LABS: HEMATOCRIT 28.5 % (36.0-47.0); HEMOGLOBIN 9.6 g/dL (12.0-15.5); MEAN CORPUSCULAR HEMOGLOBIN 29.8 pg (27.0-33.4); MEAN CORPUSCULAR HGB CONC 33.6 g/dL (32.0-36.0); MEAN CORPUSCULAR VOLUME 89 fl (80-97); PLATELET COUNT 338 10^3/uL (150-450); RED BLOOD COUNT 3.21 10^6/uL (3.72-5.28); RED CELL DISTRIBUTION WIDTH 15.5 % (11.5-14.0); WHITE BLOOD COUNT 18.9 10^3/uL (4.0-10.5)
[2019-05-25 06:31] LABS: ALBUMIN 2.1 g/dL (3.5-5.0); ALKALINE PHOSPHATASE 123 U/L (38-126); ANION GAP 10 (5-19); ASPARTATE AMINO TRANSFERASE 16 U/L (14-36); BILIRUBIN,DIRECT 0.2 mg/dL (0.0-0.4); BILIRUBIN,TOTAL 0.3 mg/dL (0.2-1.3); BLOOD UREA NITROGEN 4 mg/dL (7-20); CARBON DIOXIDE 20 mmol/L (22-30); CHLORIDE 114 mmol/L (98-107); GLUCOSE 81 mg/dL (75-110); TOTAL PROTEIN 4.8 g/dL (6.3-8.2)
--- NOTE | 2019-05-25 07:44 | PDOC CONSULTATION ---
Consultation Consult Date: 05/25/19 Provider Consulted: PAMELA GOLDEN Consult reason:: Hematology/Oncology consultation was requested for patient with bleeding, and elevated coag studies s/p C-sec. History of Present Illness Admission Date/PCP: 05/23/19 08:48 IAN DEE MD History of Present Illness: NORA MONSON is a 29 year old female with history of A-fib who delivered twins by C-sec within the last 2 weeks. She was doing laundry and suddenly had black/bloody vaginal discharge. Shortly thereafter, she developed high fever and swelling in the perineum. She was admitted and started on IV antibiotics. She has also been treated for hypokalemia and has a low albumin level. Today, she states that she is pin machine tender in the area. She has only noticed a few spots of blood. Her HGB has been slowly decreasing and her PT/PTT were both mildly elevated. Past Medical History Cardiac Medical History: Reports: Atrial Fibrillation Denies: Congestive Heart Failure, Coronary Artery Disease, Myocardial Infarction, Hypertension, Pulmonary Embolism Pulmonary Medical History: Denies: Asthma, Bronchitis, Chronic Obstructive Pulmonary Disease (COPD), Pneumonia, Tuberculosis Neurological Medical History: Denies: Seizures Endocrine Medical History: Denies: Diabetes Mellitus Type 1, Diabetes Mellitus Type 2, Hyperthyroidism, Hypothyroidism Renal/ Medical History: Denies: End Stage Renal Disease GI Medical History: Denies: Cirrhosis, Gastroesophageal Reflux Disease Musculoskeltal Medical History: Denies: Arthritis Psychiatric Medical History: Denies: Bipolar Disorder, Depression Hematology: Denies: Anemia, Bleeding Tendencies Past Surgical History Past Surgical History: Reports: Section Social History Smoking Status: Never Smoker Frequency of Alcohol Use: None - None currently but has occasionally drunk wine in the distant past prior to Hx Recreational Drug Use: No Drugs: None Family History Family History: Other - Patient is adopted and does not know family history Parental Family History Reviewed: No Children Family History Reviewed: No Sibling(s) Family History Reviewed.: No Medication/Allergy Home Medications: Ibuprofen [Motrin 800 mg Tablet] 800 mg PO Q6 05/22/19 Metoprolol Tartrate [Lopressor 25 mg Tablet] 25 mg PO Q12 05/22/19 Oxycodone HCl/Acetaminophen [Percocet 5-325 mg Tablet] 1 tab PO Q4HP PRN 05/22/19 Allergies/Adverse Reactions: No Known Allergies Allergy (Verified 10/24/19 15:49) Review of Systems Constitutional: PRESENT: fever(s), headache(s) Eyes: ABSENT: visual disturbances Ears: ABSENT: hearing changes Nose, Mouth, and Throat: ABSENT: sore throat Cardiovascular: ABSENT: chest pain Respiratory: ABSENT: dyspnea Gastrointestinal: ABSENT: constipation, nausea Genitourinary: PRESENT: as per HPI Musculoskeletal: ABSENT: muscle weakness Integumentary: PRESENT: as per HPI Neurological: ABSENT: confusion, dizziness Hematologic/Lymphatic: ABSENT: easy bleeding Physical Exam Vital Signs: Temp Pulse Resp BP Pulse Ox 98.7 F 103 H 16 107/63 100 05/25/19 03:53 05/25/19 03:53 05/25/19 03:53 05/25/19 03:53 05/25/19 03:53 Intake & Output 05/24/19 05/25/19 05/26/19 06:59 06:59 06:59 Intake Total 2850 2230 Output Total 1350 Balance 1500 2230 General appearance: PRESENT: no acute distress, well-developed, well-nourished Exam: 29 year old female. Head exam: PRESENT: atraumatic, normocephalic Eye exam: PRESENT: EOMI Mouth exam: PRESENT: tongue midline Neck exam: ABSENT: lymphadenopathy, tenderness Respiratory exam: PRESENT: clear to auscultation arianne, unlabored Cardiovascular exam: PRESENT: RRR, systolic murmur Pulses: PRESENT: normal dorsalis pedis pul GI/Abdominal exam: PRESENT: normal bowel sounds, soft Extremities exam: ABSENT: pedal edema Musculoskeletal exam: PRESENT: normal inspection Neurological exam: PRESENT: alert, awake, oriented to person, oriented to place, oriented to time, oriented to situation Psychiatric exam: PRESENT: appropriate affect Skin exam: PRESENT: normal color Results Laboratory Results: 05/25/19 05:54 05/25/19 05:54 05/24/19 05/24/19 05/25/19 07:37 12:59 05:54 WBC 18.1 H RBC 3.51 L Hgb 10.3 L Hct 31.4 L MCV 90 MCH 29.5 MCHC 32.9 RDW 15.5 H Plt Count 341 Sodium 139.7 143.5 Potassium 2.7 L* 4.0 D Chloride 109 H 114 H Carbon Dioxide 23 20 L Anion Gap 8 10 BUN 7 4 L Creatinine 0.60 0.58 Est GFR ( Amer) > 60 > 60 Glucose 86 81 Calcium 8.2 L 8.0 L Magnesium 2.2 Total Bilirubin 0.4 0.3 AST 13 L 16 Alkaline Phosphatase 125 123 Total Protein 4.8 L 4.8 L Albumin 2.1 L 2.1 L 05/25/19 05:54 WBC 18.9 H RBC 3.21 L Hgb 9.6 L Hct 28.5 L MCV 89 MCH 29.8 MCHC 33.6 RDW 15.5 H Plt Count 338 Sodium Potassium Chloride Carbon Dioxide Anion Gap BUN Creatinine Est GFR ( Amer) Glucose Calcium Magnesium Total Bilirubin AST Alkaline Phosphatase Total Protein Albumin 05/22/19 17:08 Clean Catch Midstream Urine Culture - Final Mixed Urogenital Magdalena Impressions: Retroperitoneal Abscess Drainage 05/24/19 00:00 IMPRESSION: Successful CT-guided aspiration of the small fluid collection in the anterior abdominal wall. Abdomen/Pelvis CT 05/24/19 12:03 IMPRESSION: 1. There is a low transverse abdominal incision with a circumscribed fluid collection of the internal aspect of the peritoneal surface measuring 4.0 x 2.0 x 5.4 cm extending superiorly from the incision margin (series 2, image 75, series 602, image 39). This is nonspecific and may reflect postoperative hematoma/seroma or alternately abscess depending upon clinical presentation. 2. Enlarged uterus with fluid and tiny air foci within the endometrial cavity (series 602, image 39), again nonspecific in the setting. Assessment & Plan - Diagnosis (1) Anemia Qualifiers: Other causes of anemia: acute posthemorrhagic Is this a current diagnosis for this admission?: Yes Plan: Difficult to say if infection or bleeding came first. No indication for blood transfusion. I will watch PT/PTT and will check fibrinogen. If still elevated, will check for inhibitor. PLT count remains normal. Watch HGB closely. No medications for DVT prophylaxis at this point. (2) Hypokalemia Is this a current diagnosis for this admission?: Yes Plan: This is much improved today. Mag is normal. Her albumin is also low. Encourage good nutrition. (3) Sepsis following intra-abdominal surgery Is this a current diagnosis for this admission?: Yes Plan: Agree with straight cath to repeat urine. Await culture results. Currently on anitbiotics. - Plan Summary Plan Summary: Patient was discussed with Dr. Zheng. I will continue to follow her with you. Thank you for this consultation.
[2019-05-25 08:17] LABS: AMORPHOUS SEDIMENT,URINE TRACE /HPF; APPEARANCE,URINE SLIGHTLY-CLOUDY; BILIRUBIN,URINE NEGATIVE (NEGATIVE); COLOR,URINE YELLOW; GLUCOSE, URINE NEGATIVE (NEGATIVE); KETONES,URINE NEGATIVE (NEGATIVE); LEUKOCYTE ESTERASE,URINE NEGATIVE (NEGATIVE); NITRITE,URINE NEGATIVE (NEGATIVE); PROTEIN,URINE NEGATIVE (NEGATIVE); URINE SPECIFIC GRAVITY 1.008; UROBILINOGEN,URINE NEGATIVE mg/dL (<2.0)
[2019-05-25 08:48] LABS: FIBRINOGEN 606 mg/dL (209-497); INTERNATIONAL RATION (INR) 1.25; PARTIAL THROMBOPLASTIN TIME 37.5 SEC (23.5-35.8); PROTHROMBIN TIME 15.7 SEC (11.4-15.4)
--- NOTE | 2019-05-25 09:18 | PDOC PROGRESS REPORT ---
Subjective Progress Note for:: 05/25/19 Subjective:: pt states she feels well Reason For Visit: WOUND INFECTION Physical Exam - Physical Exam Vital Signs: Temp Pulse Resp BP Pulse Ox 99.2 F 98 16 99/56 L 99 05/25/19 07:49 05/25/19 07:49 05/25/19 07:49 05/25/19 07:49 05/25/19 07:49 Intake & Output 05/24/19 05/25/19 05/26/19 06:59 06:59 06:59 Intake Total 2850 2230 100 Output Total 1350 Balance 1500 2230 100 General appearance: PRESENT: no acute distress GI/Abdominal exam: PRESENT: soft - incision clean no signs of cellulitis - Gynecological Exam Labia: other - some bilateral edema extending from the incision Result Laboratory Results: 05/25/19 05:54 05/25/19 05:54 05/24/19 05/25/19 05/25/19 12:59 05:54 05:54 WBC 18.9 H RBC 3.21 L Hgb 9.6 L Hct 28.5 L MCV 89 MCH 29.8 MCHC 33.6 RDW 15.5 H Plt Count 338 Sodium 139.7 143.5 Potassium 2.7 L* 4.0 D Chloride 109 H 114 H Carbon Dioxide 23 20 L Anion Gap 8 10 BUN 7 4 L Creatinine 0.60 0.58 Est GFR ( Amer) > 60 > 60 Glucose 86 81 Calcium 8.2 L 8.0 L Magnesium 2.2 Total Bilirubin 0.4 0.3 AST 13 L 16 Alkaline Phosphatase 125 123 Total Protein 4.8 L 4.8 L Albumin 2.1 L 2.1 L Urine Color Urine Appearance Urine pH Ur Specific [employer] Urine Protein Urine Glucose (UA) Urine Ketones Urine Blood Urine Nitrite Ur Leukocyte Esterase Urine WBC (Auto) Urine RBC (Auto) 05/25/19 07:30 WBC RBC Hgb Hct MCV MCH MCHC RDW Plt Count Sodium Potassium Chloride Carbon Dioxide Anion Gap BUN Creatinine Est GFR ( Amer) Glucose Calcium Magnesium Total Bilirubin AST Alkaline Phosphatase Total Protein Albumin Urine Color YELLOW Urine Appearance SLIGHTLY-CLOUDY Urine pH 6.0 Ur Specific [employer] 1.008 Urine Protein NEGATIVE Urine Glucose (UA) NEGATIVE Urine Ketones NEGATIVE Urine Blood SMALL H Urine Nitrite NEGATIVE Ur Leukocyte Esterase NEGATIVE Urine WBC (Auto) 3 Urine RBC (Auto) 1 05/22/19 17:08 Clean Catch Midstream Urine Culture - Final Mixed Urogenital Magdalena Impressions: Retroperitoneal Abscess Drainage 05/24/19 00:00 IMPRESSION: Successful CT-guided aspiration of the small fluid collection in the anterior abdominal wall. Abdomen/Pelvis CT 05/24/19 12:03 IMPRESSION: 1. There is a low transverse abdominal incision with a circumscribe d fluid collection of the internal aspect of the peritoneal surface measuring 4.0 x 2.0 x 5.4 cm extending superiorly from the incision margin (series 2, image 75, series 602, image 39). This is nonspecific and may reflect postoperative hematoma/seroma or alternately abscess depending upon clinical presentation. 2. Enlarged uterus with fluid and tiny air foci within the endometrial cavity (series 602, image 39), again nonspecific in the setting. Assessment & Plan - Diagnosis (1) Anemia Qualifiers: Other causes of anemia: acute posthemorrhagic Is this a current diagnosis for this admission?: Yes (2) Atrial fibrillation Qualifiers: Atrial fibrillation type: longstanding persistent Qualified Code(s): I48.11 - Longstanding persistent atrial fibrillation Is this a current diagnosis for this admission?: Yes (3) Hypokalemia Is this a current diagnosis for this admission?: Yes (4) Sepsis following intra-abdominal surgery Is this a current diagnosis for this admission?: Yes (5) Vomiting Qualifiers: Vomiting type: cyclical vomiting syndrome unrelated to migraine Qualified Code(s): R11.15 - Cyclical vomiting syndrome unrelated to migraine Is this a current diagnosis for this admission?: Yes (6) Wound infection after surgery Is this a current diagnosis for this admission?: Yes (7) Atrial fibrillation with RVR Is this a current diagnosis for this admission?: Yes - Time Time Spent with patient: Less than 15 minutes Medications reviewed and adjusted accordingly: Yes - Plan Summary Plan Summary: continue IV antibiotics and consider repeat attempt to drain in radiology if wbc remains elevated
[2019-05-25] MEDS: METOPROLOL TARTRATE 25 MG TABLET PO SCH ×2 (10:34→21:39)
--- NOTE | 2019-05-25 11:03 | PDOC PROGRESS REPORT ---
Subjective Progress Note for:: 05/25/19 Subjective:: Patient feels a little better today. Patient still having some soreness in her right lower quadrant. Patient denies any recurrence of vomiting. Patient denies any diarrhea or palpitations. Also denies lightheadedness dizziness or syncopal episodes. Did state that she noticed some chills but no fevers. Reason For Visit: WOUND INFECTION Physical Exam Vital Signs: Temp Pulse Resp BP Pulse Ox 99.2 F 98 16 99/56 L 99 05/25/19 07:49 05/25/19 07:49 05/25/19 07:49 05/25/19 07:49 05/25/19 07:49 Intake & Output 05/24/19 05/25/19 05/26/19 06:59 06:59 06:59 Intake Total 2850 2230 100 Output Total 1350 1090 Balance 1500 2230 -990 General appearance: PRESENT: no acute distress, cooperative Head exam: PRESENT: normocephalic Eye exam: PRESENT: EOMI Mouth exam: PRESENT: moist Neck exam: ABSENT: JVD Respiratory exam: PRESENT: clear to auscultation arianne, unlabored. ABSENT: crackles, tachypnea, wheezes Cardiovascular exam: PRESENT: RRR, +S1, +S2. ABSENT: irregular rhythm, tachycardia GI/Abdominal exam: PRESENT: normal bowel sounds, soft, tenderness - Around surgical site. ABSENT: firm, guarding, rebound Rectal exam: PRESENT: deferred Musculoskeletal exam: PRESENT: ambulatory Neurological exam: PRESENT: alert, awake, oriented to person, oriented to place, oriented to time, oriented to situation Psychiatric exam: PRESENT: normal mood Results Laboratory Results: 05/25/19 05:54 05/25/19 05:54 05/24/19 05/25/19 05/25/19 12:59 05:54 05:54 WBC 18.9 H RBC 3.21 L Hgb 9.6 L Hct 28.5 L MCV 89 MCH 29.8 MCHC 33.6 RDW 15.5 H Plt Count 338 Sodium 139.7 143.5 Potassium 2.7 L* 4.0 D Chloride 109 H 114 H Carbon Dioxide 23 20 L Anion Gap 8 10 BUN 7 4 L Creatinine 0.60 0.58 Est GFR ( Amer) > 60 > 60 Glucose 86 81 Calcium 8.2 L 8.0 L Magnesium 2.2 Total Bilirubin 0.4 0.3 AST 13 L 16 Alkaline Phosphatase 125 123 Total Protein 4.8 L 4.8 L Albumin 2.1 L 2.1 L Urine Color Urine Appearance Urine pH Ur Specific [place] Urine Protein Urine Glucose (UA) Urine Ketones Urine Blood Urine Nitrite Ur Leukocyte Esterase Urine WBC (Auto) Urine RBC (Auto) 05/25/19 07:30 WBC RBC Hgb Hct MCV MCH MCHC RDW Plt Count Sodium Potassium Chloride Carbon Dioxide Anion Gap BUN Creatinine Est GFR ( Amer) Glucose Calcium Magnesium Total Bilirubin AST Alkaline Phosphatase Total Protein Albumin Urine Color YELLOW Urine Appearance SLIGHTLY-CLOUDY Urine pH 6.0 Ur Specific [place] 1.008 Urine Protein NEGATIVE Urine Glucose (UA) NEGATIVE Urine Ketones NEGATIVE Urine Blood SMALL H Urine Nitrite NEGATIVE Ur Leukocyte Esterase NEGATIVE Urine WBC (Auto) 3 Urine RBC (Auto) 1 05/22/19 17:08 Clean Catch Midstream Urine Culture - Final Mixed Urogenital Magdalena Impressions: Retroperitoneal Abscess Drainage 05/24/19 00:00 IMPRESSION: Successful CT-guided aspiration of the small fluid collection in the anterior abdominal wall. Abdomen/Pelvis CT 05/24/19 12:03 IMPRESSION: 1. There is a low transverse abdominal incision with a circumscribed fluid collection of the internal aspect of the peritoneal surface measuring 4.0 x 2.0 x 5.4 cm extending superiorly from the incision margin (series 2, image 75, series 602, image 39). This is nonspecific and may reflect postoperative hematoma/seroma or alternately abscess depending upon clinical presentation. 2. Enlarged uterus with fluid and tiny air foci within the endometrial cavity (series 602, image 39), again nonspecific in the setting. Assessment and Plan - Diagnosis (1) Hypokalemia Is this a current diagnosis for this admission?: Yes Plan: -The main contributing factors I believe to have been had episodes of vomiting and/or gentamicin possibly. Of note, gentamicin could have contributed to tubular dysfunction causing hypokalemia especially given the onset of severe hypokalemia after starting gentamicin. Otherwise other meds unlikely to have contributed to this. -Hypokalemia is now resolved post aggressive repletion's -Would suggest keeping patient off gentamicin and repeating BMP tomorrow morning (2) Sepsis following intra-abdominal surgery Is this a current diagnosis for this admission?: Yes Plan: Follow-up culture from drainage and blood cultures Currently afebrile My preference for antibiotic regimen for intra-abdominal abscess would be ceftriaxone 2 g IV daily and Flagyl 500 mg IV every 8 hours only. However ampicillin and clindamycin will also suffice. Recommend keeping patient off gentamicin. (3) Atrial fibrillation Qualifiers: Atrial fibrillation type: longstanding persistent Qualified Code(s): I48.11 - Longstanding persistent atrial fibrillation Is this a current diagnosis for this admission?: Yes Plan: -Continue metoprolol 12.5 mg every 12 -We will place order for an echocardiogram since patient was supposed to get this done after presenting with new onset A. fib on last visit (4) Hypoalbuminemia Is this a current diagnosis for this admission?: Yes Plan: -Patient's urinalysis after straight catheterization shows no evidence of proteinuria ruling out nephrotic syndrome or renal losses of albumin -Unlikely from the liver disease given no history or risk factors for cirrhosis, normal platelets and only minimally elevated coags with normal liver enzymes -My suspicion for the etiology of this is likely dilutional effect from recent or decreased protein caloric intake -Encourage proper nutrition and will just opt to monitor this for now and repeat levels in a few months (5) Vomiting Qualifiers: Vomiting type: cyclical vomiting syndrome unrelated to migraine Qualified Code(s): R11.15 - Cyclical vomiting syndrome unrelated to migraine Is this a current diagnosis for this admission?: Yes Plan: Resolved (6) Wound infection after surgery Is this a current diagnosis for this admission?: Yes - Time Time Spent with patient: 15-24 minutes
--- NOTE | 2019-05-25 22:43 | EKG REPORT ---
SEVERITY:- BORDERLINE ECG - SINUS RHYTHM PROBABLE LEFT ATRIAL ABNORMALITY LEFT AXIS DEVIATION LOW VOLTAGE THROUGHOUT : Confirmed by: Heriberto Hutchison 25-May-2019 22:42:41
[2019-05-26] MEDS: IBUPROFEN 800 MG TABLET PO PRN ×2 (02:42→22:09)
[2019-05-26] MEDS: CLINDAMYCIN 900 MG/D5W RTU 900 MG/50 ML RTUPB IV SCH ×3 (02:42→18:45)
[2019-05-26] MEDS: AMPICILLIN SODIUM 1 GM in NORMAL SALINE 50 ML IV SCH ×4 (03:48→22:00)
[2019-05-26] MEDS: DEXTROSE 5%-NORMAL SALINE 1,000 ML IV PRN ×2 (05:58→16:00)
--- NOTE | 2019-05-26 08:03 | PDOC PROGRESS REPORT ---
Subjective Progress Note for:: 05/26/19 Subjective:: Patient states that she is about the same. She has been able to get up and walk without difficulty. There was a good bit of drainage from the wound yesterday. She states it was pink, but not blood. Reason For Visit: WOUND INFECTION Physical Exam Vital Signs: Temp Pulse Resp BP Pulse Ox 98.4 F 86 12 103/61 96 05/26/19 07:12 05/26/19 07:12 05/26/19 07:12 05/26/19 07:12 05/26/19 07:12 Intake & Output 05/25/19 05/26/19 05/27/19 06:59 06:59 06:59 Intake Total 2230 2750 Output Total 1090 Balance 2230 1660 Weight 62.9 kg General appearance: PRESENT: no acute distress, well-developed, well-nourished Respiratory exam: PRESENT: unlabored GI/Abdominal exam: PRESENT: distended Extremities exam: ABSENT: pedal edema Neurological exam: PRESENT: alert, awake Psychiatric exam: PRESENT: appropriate affect Skin exam: PRESENT: normal color Results Laboratory Results: 05/25/19 05:54 05/25/19 07:30 Urine Color YELLOW Urine Appearance SLIGHTLY-CLOUDY Urine pH 6.0 Ur Specific [place] 1.008 Urine Protein NEGATIVE Urine Glucose (UA) NEGATIVE Urine Ketones NEGATIVE Urine Blood SMALL H Urine Nitrite NEGATIVE Ur Leukocyte Esterase NEGATIVE Urine WBC (Auto) 3 Urine RBC (Auto) 1 Impressions: Retroperitoneal Abscess Drainage 05/24/19 00:00 IMPRESSION: Successful CT-guided aspiration of the small fluid collection in the anterior abdominal wall. Abdomen/Pelvis CT 05/24/19 12:03 IMPRESSION: 1. There is a low transverse abdominal incision with a circumscribed fluid collection of the internal aspect of the peritoneal surface measuring 4.0 x 2.0 x 5.4 cm extending superiorly from the incision margin (series 2, image 75, series 602, image 39). This is nonspecific and may reflect postoperative hematoma/seroma or alternately abscess depending upon clinical presentation. 2. Enlarged uterus with fluid and tiny air foci within the endometrial cavity (series 602, image 39), again nonspecific in the setting. Assessment & Plan - Diagnosis (1) Anemia Qualifiers: Other causes of anemia: acute posthemorrhagic Is this a current diagnosis for this admission?: Yes Plan: Will repeat CBC in the morning. Currently, no evidence of significant bleeding. No indication for blood transfusion. (2) Hypokalemia Is this a current diagnosis for this admission?: Yes Plan: This appears to have resolved. Possibly due to the gentamycin which has now been stopped. (3) Sepsis following intra-abdominal surgery Is this a current diagnosis for this admission?: Yes Plan: Low-grade fevers continue. ABX continue. BP has remained stable. - Time Time Spent with patient: Less than 15 minutes - Plan Summary Plan Summary: Her PT and PTT are still abnormal, but I am told it will take a week to get results of a mixing study, as this must be sent out. I will continue to follow this, but difficult to say what has caused it. Further work-up is problematic here. Hopefully, it will resolve as infection resolves.
[2019-05-26 08:05] LABS: ANION GAP 9 (5-19); BLOOD UREA NITROGEN 3 mg/dL (7-20); CALCIUM 8.1 mg/dL (8.4-10.2); CARBON DIOXIDE 20 mmol/L (22-30); CHLORIDE 111 mmol/L (98-107); GLUCOSE 81 mg/dL (75-110); POTASSIUM 3.7 mmol/L (3.6-5.0)
[2019-05-26] MEDS: OXYCODONE HCL IR 5 MG TABLET PO PRN ×3 (09:21→22:09)
[2019-05-26] MEDS: METOPROLOL TARTRATE 25 MG TABLET PO SCH ×2 (10:49→22:45)
[2019-05-26 11:42] LABS: HEMATOCRIT 27.2 % (36.0-47.0); HEMOGLOBIN 9.1 g/dL (12.0-15.5); MEAN CORPUSCULAR HEMOGLOBIN 29.7 pg (27.0-33.4); MEAN CORPUSCULAR HGB CONC 33.6 g/dL (32.0-36.0); MEAN CORPUSCULAR VOLUME 89 fl (80-97); PLATELET COUNT 370 10^3/uL (150-450); RED BLOOD COUNT 3.08 10^6/uL (3.72-5.28); RED CELL DISTRIBUTION WIDTH 15.8 % (11.5-14.0); WHITE BLOOD COUNT 15.2 10^3/uL (4.0-10.5)
[2019-05-26] MEDS ORDERED: MORPHINE SULFATE 10 MG/ML INJ ONE (11:44)
[2019-05-26 12:09] LABS: GENTAMICIN-TROUGH < 0.6 ug/mL (<2.0)
[2019-05-26 12:33] LABS: ABSOLUTE LYMPHOCYTES# (MANUAL) 1.5 10^3/uL (0.5-4.7); ABSOLUTE MONOCYTES # (MANUAL) 0.9 10^3/uL (0.1-1.4); BASOPHILS % (MANUAL) 0 % (0-2); EOSINOPHILS % (MANUAL) 3 % (0-6); LYMPHOCYTES % (MANUAL) 10 % (13-45); MONOCYTES % (MANUAL) 6 % (3-13); SEGMENTED NEUTROPHILS % (MAN) 81 % (42-78); TOTAL CELLS COUNTED 100
[2019-05-26 12:34] LABS: ANISOCYTOSIS 1+; PLATELET COMMENT ADEQUATE
--- NOTE | 2019-05-26 13:54 | PDOC PROGRESS REPORT ---
Subjective Progress Note for:: 05/26/19 Subjective:: Patient feels well today though spiked some fevers. Complains of mild tenderness at surgical site especially in the right lower quadrant. Denies any palpitations chest pain or trouble breathing. Reason For Visit: WOUND INFECTION Physical Exam Vital Signs: Temp Pulse Resp BP Pulse Ox 98.4 F 86 12 103/61 96 05/26/19 07:12 05/26/19 07:12 05/26/19 07:12 05/26/19 07:12 05/26/19 07:12 Intake & Output 05/25/19 05/26/19 05/27/19 06:59 06:59 06:59 Intake Total 2230 2850 50 Output Total 1090 Balance 2230 1760 50 Weight 62.9 kg General appearance: PRESENT: no acute distress, cooperative Head exam: PRESENT: normocephalic Eye exam: PRESENT: EOMI Mouth exam: PRESENT: moist Neck exam: ABSENT: JVD Respiratory exam: PRESENT: clear to auscultation arianne Cardiovascular exam: PRESENT: RRR, +S1, +S2. ABSENT: tachycardia Vascular exam: ABSENT: pallor GI/Abdominal exam: PRESENT: normal bowel sounds, tenderness Neurological exam: PRESENT: alert, awake Psychiatric exam: ABSENT: agitated Focused psych exam: ABSENT: internal stimuli Results Laboratory Results: 05/26/19 07:15 05/26/19 07:15 05/26/19 05/26/19 07:15 07:15 WBC 15.2 H RBC 3.08 L Hgb 9.1 L Hct 27.2 L MCV 89 MCH 29.7 MCHC 33.6 RDW 15.8 H Plt Count 370 Seg Neutrophils % Not Reportable Sodium 139.6 Potassium 3.7 Chloride 111 H Carbon Dioxide 20 L Anion Gap 9 BUN 3 L Creatinine 0.53 Est GFR ( Amer) > 60 Glucose 81 Calcium 8.1 L Impressions: Retroperitoneal Abscess Drainage 05/24/19 00:00 IMPRESSION: Successful CT-guided aspiration of the small fluid collection in the anterior abdominal wall. Abdomen/Pelvis CT 05/24/19 12:03 IMPRESSION: 1. There is a low transverse abdominal incision with a circumscribed fluid collection of the internal aspect of the peritoneal surface measuring 4.0 x 2.0 x 5.4 cm extending superiorly from the incision margin (ser ies 2, image 75, series 602, image 39). This is nonspecific and may reflect postoperative hematoma/seroma or alternately abscess depending upon clinical presentation. 2. Enlarged uterus with fluid and tiny air foci within the endometrial cavity (series 602, image 39), again nonspecific in the setting. Assessment and Plan - Diagnosis (1) Hypokalemia Is this a current diagnosis for this admission?: Yes Plan: -Resolved -Likely secondary to gentamicin and some component from vomiting -We will follow-up metabolic panel tomorrow morning (2) Atrial fibrillation Qualifiers: Atrial fibrillation type: longstanding persistent Qualified Code(s): I48.11 - Longstanding persistent atrial fibrillation Is this a current diagnosis for this admission?: Yes Plan: -Continue metoprolol 12.5 mg every 12 -Awaiting results of echocardiogram (3) Hypoalbuminemia Is this a current diagnosis for this admission?: Yes Plan: -Patient's urinalysis after straight catheterization shows no evidence of proteinuria ruling out nephrotic syndrome or renal losses of albumin -Unlikely from the liver disease given no history or risk factors for cirrhosis, normal platelets and only minimally elevated coags with normal liver enzymes -My suspicion for the etiology of this is likely dilutional effect from recent or decreased protein caloric intake -Encourage proper nutrition and will just opt to monitor this for now and repeat levels in a few months (4) Sepsis following intra-abdominal surgery Is this a current diagnosis for this admission?: Yes Plan: -Plan per OB (5) Wound infection after surgery Is this a current diagnosis for this admission?: Yes - Time Time Spent with patient: 15-24 minutes
--- NOTE | 2019-05-26 14:19 | PDOC PROGRESS REPORT ---
Subjective Progress Note for:: 05/26/19 Subjective:: Feels somewhat better today. Less pain and feels better "overall" Had a fever last night and incision began draining. No fever or chills this am. Reason For Visit: WOUND INFECTION Physical Exam - Physical Exam Vital Signs: Temp Pulse Resp BP Pulse Ox 98.4 F 86 12 103/61 96 05/26/19 07:12 05/26/19 07:12 05/26/19 07:12 05/26/19 07:12 05/26/19 07:12 Intake & Output 05/25/19 05/26/19 05/27/19 06:59 06:59 06:59 Intake Total 2230 2850 50 Output Total 1090 Balance 2230 1760 50 Weight 62.9 kg General appearance: PRESENT: no acute distress Respiratory exam: PRESENT: clear to auscultation arianne Cardiovascular exam: PRESENT: RRR, +S1, +S2 GI/Abdominal exam: PRESENT: normal bowel sounds, soft, other - Incision with 3-4 mm opening just right of center that is actively draining purulent discharge. Cotton swab (Sterile) used to probe opening. Pocket noted that is 3-4 cm x 2.5 cm in size. It extends from midline to toward the right . No deficit noted in the fascia. WOund irrigated with NS and packed with 1/2 inch iodiform gauze strip - Gynecological Exam Labia: other - some bilateral edema extending from the incision Result Laboratory Results: 05/26/19 07:15 05/26/19 07:15 05/26/19 05/26/19 07:15 07:15 WBC 15.2 H RBC 3.08 L Hgb 9.1 L Hct 27.2 L MCV 89 MCH 29.7 MCHC 33.6 RDW 15.8 H Plt Count 370 Seg Neutrophils % Not Reportable Sodium 139.6 Potassium 3.7 Chloride 111 H Carbon Dioxide 20 L Anion Gap 9 BUN 3 L Creatinine 0.53 Est GFR ( Amer) > 60 Glucose 81 Calcium 8.1 L Impressions: Retroperitoneal Abscess Drainage 05/24/19 00:00 IMPRESSION: Successful CT-guided aspiration of the small fluid collection in the anterior abdominal wall. Abdomen/Pelvis CT 05/24/19 12:03 IMPRESSION: 1. There is a low transverse abdominal incision with a c ircumscribed fluid collection of the internal aspect of the peritoneal surface measuring 4.0 x 2.0 x 5.4 cm extending superiorly from the incision margin (series 2, image 75, series 602, image 39). This is nonspecific and may reflect postoperative hematoma/seroma or alternately abscess depending upon clinical presentation. 2. Enlarged uterus with fluid and tiny air foci within the endo metrial cavity (series 602, image 39), again nonspecific in the setting. Assessment & Plan - Diagnosis (1) Anemia Qualifiers: Anemia type: other cause Other causes of anemia: acute posthemorrhagic Qualified Code(s): D62 - Acute posthemorrhagic anemia Is this a current diagnosis for this admission?: Yes Plan: Iron BID (2) Sepsis following intra-abdominal surgery Is this a current diagnosis for this admission?: Yes Plan: Wound has opened and is draining WBC improved today WOund irrigated and packed after inspection noting fascia intact as above Continue antibiotics (3) Wound infection after surgery Is this a current diagnosis for this admission?: Yes Plan: As above - Time Time Spent with patient: 25-34 minutes Medications reviewed and adjusted accordingly: Yes Anticipated discharge: Home Within: within 48 hours - Inpatient Certification Based on my medical assessment, after consideration of the patient's comorbidities, presenting symptoms, or acuity I expect that the services needed warrant INPATIENT care.: Yes Medical Necessity: Need for IV Antibiotics
[2019-05-26] MEDS: ACETAMINOPHEN 325 MG TABLET PO PRN (16:15)
[2019-05-27] MEDS: CLINDAMYCIN 900 MG/D5W RTU 900 MG/50 ML RTUPB IV SCH (02:43)
[2019-05-27] MEDS: AMPICILLIN SODIUM 1 GM in NORMAL SALINE 50 ML IV SCH ×2 (03:58→08:24)
[2019-05-27] MEDS: DEXTROSE 5%-NORMAL SALINE 1,000 ML IV PRN (04:02)
[2019-05-27 05:16] LABS: ABSOLUTE EOSINOPHILS # (AUTO) 0.3 10^3/uL (0.0-0.6); ABSOLUTE LYMPHOCYTES (AUTO) 1.5 10^3/uL (0.5-4.7); ABSOLUTE MONOCYTES (AUTO) 0.9 10^3/uL (0.1-1.4); ABSOLUTE NEUT (AUTO) 8.7 10^3/uL (1.7-8.2); BASOPHILS % (AUTO) 0.4 % (0-2); EOSINOPHILS % (AUTO) 2.4 % (0-6); HEMATOCRIT 27.5 % (36.0-47.0); HEMOGLOBIN 9.2 g/dL (12.0-15.5); LYMPHOCYTES % (AUTO) 13.5 % (13-45); MEAN CORPUSCULAR HEMOGLOBIN 29.6 pg (27.0-33.4); MEAN CORPUSCULAR HGB CONC 33.6 g/dL (32.0-36.0); MEAN CORPUSCULAR VOLUME 88 fl (80-97); MONOCYTES % (AUTO) 7.5 % (3-13); PLATELET COUNT 385 10^3/uL (150-450); RED BLOOD COUNT 3.12 10^6/uL (3.72-5.28); RED CELL DISTRIBUTION WIDTH 15.5 % (11.5-14.0); SEGMENTED NEUTROPHILS % (AUTO) 76.2 % (42-78); TOTAL CELLS COUNTED % (AUTO) 100 %; WHITE BLOOD COUNT 11.4 10^3/uL (4.0-10.5)
[2019-05-27 05:39] LABS: ANION GAP 7 (5-19); BLOOD UREA NITROGEN 4 mg/dL (7-20); CALCIUM 8.1 mg/dL (8.4-10.2); CARBON DIOXIDE 24 mmol/L (22-30); CHLORIDE 109 mmol/L (98-107); GLUCOSE 78 mg/dL (75-110)
[2019-05-27 07:51] LABS: IRON(TIBC) 22.6 ug/dL (37-170)
[2019-05-27 08:02] LABS: ABSOLUTE RETICS # 0.011 10^6/uL (0.028-0.122)
[2019-05-27] MEDS: OXYCODONE HCL IR 5 MG TABLET PO PRN (08:18)
[2019-05-27] MEDS: IBUPROFEN 800 MG TABLET PO PRN (08:19)
[2019-05-27 08:56] LABS: FOLATE 9.99 ng/mL (>2.76)
--- NOTE | 2019-05-27 09:14 | PDOC DISCHARGE SUMMARY ---
Impression - Admit/DC Date/PCP Admission Date/Primary Care Provider: 05/23/19 08:48 IAN EDE MD Discharge Date: 05/27/19 - Discharge Diagnosis (1) Anemia Is this a current diagnosis for this admission?: Yes (2) Sepsis following intra-abdominal surgery Is this a current diagnosis for this admission?: Yes (3) Wound infection after surgery Is this a current diagnosis for this admission?: Yes - Assessment Summary: admitted for post cesearean wound infection. has had I&D, IV antibiotics and anemia workup. WBC is trending down. drainage is improving and packing is going well. I showed patient SO how to pack the defect and gave them both strict instructions for care. They both voiced understanding. - Additional Information Resuscitation Status: Full Code Discharge Diet: As Tolerated Discharge Activity: Balance Activity w/Rest, No Lifting/Push/Pulling, Pelvic Rest, No tub bath Referrals: IAN DEE MD [Primary Care Provider] - Prescriptions: Oxycodone HCl [Oxy-Ir 5 mg Tablet] 10 mg PO Q6HP PRN #20 tablet PRN Reason: Ibuprofen [Motrin 800 mg Tablet] 800 mg PO Q8HP PRN #60 tablet PRN Reason: Cephalexin Monohydrate [Keflex 250 mg/5 ml Susp] 500 mg PO Q8 #240 ml Home Medications: Ibuprofen [Motrin 800 mg Tablet] 800 mg PO Q6 05/22/19 Metoprolol Tartrate [Lopressor 25 mg Tablet] 25 mg PO Q12 05/22/19 Oxycodone HCl/Acetaminophen [Percocet 5-325 mg Tablet] 1 tab PO Q4HP PRN 05/22/19 Cephalexin Monohydrate [Keflex 250 mg/5 ml Susp] 500 mg PO Q8 #240 ml 05/27/19 Ibuprofen [Motrin 800 mg Tablet] 800 mg PO Q8HP PRN #60 tablet 05/27/19 Oxycodone HCl [Oxy-Ir 5 mg Tablet] 10 mg PO Q6HP PRN #20 tablet 05/27/19 History of Present Illiness History of Present Illness: NORA MONSON is a 29 year old female Physical Exam - Physical Exam Vital Signs: Temp Pulse Resp BP Pulse Ox 98.0 F 80 16 119/70 97 05/27/19 04:31 05/27/19 04:31 05/27/19 04:31 05/27/19 04:31 05/27/19 04:31 Intake & Output 05/26/19 05/27/19 05/28/19 06:59 06:59 06:59 Intake Total 2850 2300 Output Total 1090 Balance 1760 2300 Weight 62.9 kg 59.7 kg - Gynecological Exam Labia: other - some bilateral edema extending from the incision Results Laboratory Results: WBC 11.4 10^3/uL (4.0-10.5) H 05/27/19 04:49 RBC 3.12 10^6/uL (3.72-5.28) L 05/27/19 04:49 Hgb 9.2 g/dL (12.0-15.5) L 05/27/19 04:49 Hct 27.5 % (36.0-47.0) L 05/27/19 04:49 MCV 88 fl (80-97) 05/27/19 04:49 MCH 29.6 pg (27.0-33.4) 05/27/19 04:49 MCHC 33.6 g/dL (32.0-36.0) 05/27/19 04:49 RDW 15.5 % (11.5-14.0) H 05/27/19 04:49 Plt Count 385 10^3/uL (150-450) 05/27/19 04:49 Lymph % (Auto) 13.5 % (13-45) 05/27/19 04:49 [place] % (Auto) 7.5 % (3-13) 05/27/19 04:49 Eos % (Auto) 2.4 % (0-6) 05/27/19 04:49 Baso % (Auto) 0.4 % (0-2) 05/27/19 04:49 Absolute Neuts (auto) 8.7 10^3/uL (1.7-8.2) H 05/27/19 04:49 Absolute Lymphs (auto) 1.5 10^3/uL (0.5-4.7) 05/27/19 04:49 Absolute Monos (auto) 0.9 10^3/uL (0.1-1.4) 05/27/19 04:49 Absolute Eos (auto) 0.3 10^3/uL (0.0-0.6) 05/27/19 04:49 Absolute Basos (auto) 0.0 10^3/uL (0.0-0.2) 05/27/19 04:49 Total Counted 100 05/26/19 07:15 Seg Neutrophils % 76.2 % (42-78) 05/27/19 04:49 Seg Neuts % (Manual) 81 % (42-78) H 05/26/19 07:15 Band Neutrophils % 1 % (3-5) L 05/23/19 08:05 Lymphocytes % (Manual) 10 % (13-45) L 05/26/19 07:15 Atypical Lymphs % 1 % (0) 05/22/19 18:13 Monocytes % (Manual) 6 % (3-13) 05/26/19 07:15 Eosinophils % (Manual) 3 % (0-6) 05/26/19 07:15 Basophils % (Manual) 0 % (0-2) 05/26/19 07:15 Abs Neuts (Manual) 12.3 10^3/uL (1.7-8.2) H 05/26/19 07:15 Abs Lymphs (Manual) 1.5 10^3/uL (0.5-4.7) 05/26/19 07:15 Abs Monocytes (Manual) 0.9 10^3/uL (0.1-1.4) 05/26/19 07:15 Absolute Eos (Manual) 0.5 10^3/uL (0.0-0.6) 05/26/19 07:15 Abs Basophils (Manual) 0.0 10^3/uL (0.0-0.2) 05/26/19 07:15 Dohle Bodies PRESENT 05/23/19 08:05 Large Platelets PRESENT 05/23/19 08:05 Platelet Comment ADEQUATE 05/26/19 07:15 Polychromasia SLIGHT 05/23/19 08:05 Anisocytosis 1+ 05/26/19 07:15 PT 15.7 SEC (11.4-15.4) H 05/25/19 08:09 INR 1.25 05/25/19 08:09 APTT 37.5 SEC (23.5-35.8) H 05/25/19 08:09 Fibrinogen 606 mg/dL (209-497) H 05/25/19 08:09 Sodium 140.2 mmol/L (137-145) 05/27/19 04:49 Potassium 4.0 mmol/L (3.6-5.0) 05/27/19 04:49 Chloride 109 mmol/L (98-107) H 05/27/19 04:49 Carbon Dioxide 24 mmol/L (22-30) 05/27/19 04:49 Anion Gap 7 (5-19) 05/27/19 04:49 BUN 4 mg/dL (7-20) L 05/27/19 04:49 Creatinine 0.50 mg/dL (0.52-1.25) L 05/27/19 04:49 Est GFR ( Amer) > 60 (>60) 05/27/19 04:49 Est GFR (MDRD) Non-Af > 60 (>60) 05/27/19 04:49 Glucose 78 mg/dL (75-110) 05/27/19 04:49 Calcium 8.1 mg/dL (8.4-10.2) L 05/27/19 04:49 Magnesium 2.0 mg/dL (1.6-2.3) 05/27/19 04:49 Iron 22.6 ug/dL (37-170) L 05/27/19 04:49 TIBC 223 ug/dL (250-450) L 05/27/19 04:49 % Saturation 10 % 05/27/19 04:49 Ferritin 112.00 ng/mL (6.2-137.0) 05/27/19 04:49 Total Bilirubin 0.3 mg/dL (0.2-1.3) 05/25/19 05:54 Direct Bilirubin 0.2 mg/dL (0.0-0.4) 05/25/19 05:54 Neonat Total Bilirubin Not Reportable 05/25/19 05:54 Neonat Direct Bilirubin Not Reportable 05/25/19 05:54 Neonat Indirect Bili Not Reportable 05/25/19 05:54 AST 16 U/L (14-36) 05/25/19 05:54 ALT 13 U/L (<35) 05/25/19 05:54 Alkaline Phosphatase 123 U/L (38-126) 05/25/19 05:54 Total Protein 4.8 g/dL (6.3-8.2) L 05/25/19 05:54 Albumin 2.1 g/dL (3.5-5.0) L 05/25/19 05:54 Vitamin B12 > 1000.0 pg/mL (239-931) H 05/27/19 04:49 Folate 9.99 ng/mL (>2.76) 05/27/19 04:49 Urine Color YELLOW 05/25/19 07:30 Urine Appearance SLIGHTLY-CLOUDY 05/25/19 07:30 Urine pH 6.0 (5.0-9.0) 05/25/19 07:30 Ur Specific Home 1.008 05/25/19 07:30 Urine Protein NEGATIVE mg/dL (NEGATIVE) 05/25/19 07:30 Urine Glucose (UA) NEGATIVE mg/dL (NEGATIVE) 05/25/19 07:30 Urine Ketones NEGATIVE mg/dL (NEGATIVE) 05/25/19 07:30 Urine Blood SMALL (NEGATIVE) H 05/25/19 07:30 Urine Nitrite NEGATIVE (NEGATIVE) 05/25/19 07:30 Urine Bilirubin NEGATIVE (NEGATIVE) 05/25/19 07:30 Urine Urobilinogen NEGATIVE mg/dL (<2.0) 05/25/19 07:30 Ur Leukocyte Esterase NEGATIVE (NEGATIVE) 05/25/19 07:30 Urine WBC (Auto) 3 /HPF 05/25/19 07:30 Urine RBC (Auto) 1 /HPF 05/25/19 07:30 U Hyaline Cast (Auto) 1 /LPF 05/25/19 07:30 Squamous Epi Cells Auto <1 /HPF 05/25/19 07:30 Amorphous Sediment Auto TRACE /HPF 05/25/19 07:30 Urine Mucus (Auto) RARE /LPF 05/25/19 07:30 Urine Ascorbic Acid NEGATIVE (NEGATIVE) 05/25/19 07:30 Time Trough Drawn 1102 05/26/19 11:02 Gentamicin Trough < 0.6 ug/mL (<2.0) 05/26/19 11:02 Impressions: Retroperitoneal Abscess Drainage 05/24/19 00:00 IMPRESSION: Successful CT-guided aspiration of the small fluid collection in the anterior abdominal wall. Abdomen/Pelvis CT 05/24/19 12:03 IMPRESSION: 1. There is a low transverse abdominal incision with a circumscribed fluid collection of the internal aspect of the peritoneal surface measuring 4.0 x 2.0 x 5.4 cm extending superiorly from the incision margin (series 2, image 75, series 602, image 39). This is nonspecific and may reflect postoperative hematoma/seroma or alternately abscess depending upon clinical presentation. 2. Enlarged uterus with fluid and tiny air foci within the endometrial cavity (series 602, image 39), again nonspecific in the setting. Stroke Is this a Stroke Patient?: No Acute Heart Failure - Is this a Heart Failure Patient?: No
--- NOTE | 2019-05-27 09:15 | PDOC PROGRESS REPORT ---
Subjective Progress Note for:: 05/27/19 Subjective:: patien tis feeling much better today. She is anxious to go home. No additional bleeding. Reason For Visit: WOUND INFECTION Physical Exam Vital Signs: Temp Pulse Resp BP Pulse Ox 98.0 F 80 16 119/70 97 05/27/19 04:31 05/27/19 04:31 05/27/19 04:31 05/27/19 04:31 05/27/19 04:31 Intake & Output 05/26/19 05/27/19 05/28/19 06:59 06:59 06:59 Intake Total 2850 2300 Output Total 1090 Balance 1760 2300 Weight 62.9 kg 59.7 kg General appearance: PRESENT: no acute distress, well-developed, well-nourished Head exam: PRESENT: normocephalic Respiratory exam: PRESENT: unlabored Extremities exam: ABSENT: pedal edema Neurological exam: PRESENT: alert, awake Psychiatric exam: PRESENT: appropriate affect Skin exam: PRESENT: normal color Results Laboratory Results: 05/27/19 04:49 05/27/19 04:49 05/26/19 05/27/19 05/27/19 07:15 04:49 04:49 WBC 15.2 H 11.4 H RBC 3.08 L 3.12 L Hgb 9.1 L 9.2 L Hct 27.2 L 27.5 L MCV 89 88 MCH 29.7 29.6 MCHC 33.6 33.6 RDW 15.8 H 15.5 H Plt Count 370 385 Seg Neutrophils % Not Reportable 76.2 Sodium 140.2 Potassium 4.0 Chloride 109 H Carbon Dioxide 24 Anion Gap 7 BUN 4 L Creatinine 0.50 L Est GFR ( Amer) > 60 Glucose 78 Calcium 8.1 L Magnesium 2.0 Iron TIBC % Saturation Ferritin Vitamin B12 Folate 05/27/19 04:49 WBC RBC Hgb Hct MCV MCH MCHC RDW Plt Count Seg Neutrophils % Sodium Potassium Chloride Carbon Dioxide Anion Gap BUN Creatinine Est GFR ( Amer) Glucose Calcium Magnesium Iron 22.6 L TIBC 223 L % Saturation 10 Ferritin 112.00 Vitamin B12 > 1000.0 H Folate 9.99 Impressions: Retroperitoneal Abscess Drainage 05/24/19 00:00 IMPRESSION: Successful CT-guided aspiration of the small fluid collection in the anterior abdominal wall. Abdomen/Pelvis CT 05/24/19 12:03 IMPRESSION: 1. There is a low transverse abdominal incision with a circumscribed fluid collection of the internal aspect of the peritoneal surface measuring 4.0 x 2.0 x 5.4 cm extending superiorly from the incision margin (series 2, image 75, series 602, image 39). This is nonspecific and may reflect postoperative hematoma/seroma or alternately abscess depending upon clinical presentation. 2. Enlarged uterus with fluid and tiny air foci within the endometrial cavity (series 602, image 39), again nonspecific in the setting. Assessment & Plan - Diagnosis (1) Anemia Qualifiers: Qualified Code(s): D62 - Acute posthemorrhagic anemia Is this a current diagnosis for this admission?: Yes Plan: Has now stabilized. iron, B12, and folate with no evidence of deficiency. I agree with plans for discharge. I would repeat CBC in a few weeks. (2) Hypokalemia Is this a current diagnosis for this admission?: Yes (3) Sepsis following intra-abdominal surgery Is this a current diagnosis for this admission?: Yes Plan: Coags have been stable. Most likely due to the sepsis. No evidence of concerning bleeding. - Time Time Spent with patient: 15-24 minutes - Plan Summary Plan Summary: OK with me if she is discharged. I will see her again only PRN. patient was discussed with Dr. Yi.
[2019-05-27 09:18] VITALS: BP 113/74
[2019-05-27 10:16] LABS: RETICULOCYTE COUNT (AUTO) 0.36 % (0.66-2.85)
--- NOTE | 2019-05-27 12:55 | PDOC PROGRESS REPORT ---
Subjective Progress Note for:: 05/27/19 Subjective:: Patient states she is feeling better. Pain in surgical sites have improved. She denies any palpitations. Denies any shortness of breath lightheadedness or dizziness. Reason For Visit: WOUND INFECTION Physical Exam Vital Signs: Temp Pulse Resp BP Pulse Ox 99.4 F 84 20 113/74 100 05/27/19 09:54 05/27/19 09:54 05/27/19 09:54 05/27/19 09:54 05/27/19 09:54 Intake & Output 05/26/19 05/27/19 05/28/19 06:59 06:59 06:59 Intake Total 2850 2300 Output Total 1090 Balance 1760 2300 Weight 62.9 kg 59.7 kg General appearance: PRESENT: no acute distress Head exam: PRESENT: normocephalic Respiratory exam: PRESENT: clear to auscultation arianne, symmetrical, unlabored. ABSENT: tachypnea, wheezes Cardiovascular exam: PRESENT: RRR, +S1, +S2, systolic murmur. ABSENT: gallop GI/Abdominal exam: PRESENT: normal bowel sounds, soft. ABSENT: hypoactive bowel sounds, rigid Neurological exam: PRESENT: alert, awake, oriented to person, oriented to place, oriented to time Results Laboratory Results: 05/27/19 04:49 05/27/19 04:49 05/27/19 05/27/19 05/27/19 04:49 04:49 04:49 WBC 11.4 H RBC 3.12 L Hgb 9.2 L Hct 27.5 L MCV 88 MCH 29.6 MCHC 33.6 RDW 15.5 H Plt Count 385 Seg Neutrophils % 76.2 Retic Count (auto) 0.36 L Sodium 140.2 Potassium 4.0 Chloride 109 H Carbon Dioxide 24 Anion Gap 7 BUN 4 L Creatinine 0.50 L Est GFR ( Amer) > 60 Glucose 78 Calcium 8.1 L Magnesium 2.0 Iron TIBC % Saturation Ferritin Vitamin B12 Folate 05/27/19 04:49 WBC RBC Hgb Hct MCV MCH MCHC RDW Plt Count Seg Neutrophils % Retic Count (auto) Sodium Potassium Chloride Carbon Dioxide Anion Gap BUN Creatinine Est GFR ( Amer) Glucose Calcium Magnesium Iron 22.6 L TIBC 223 L % Saturation 10 Ferritin 112.00 Vitamin B12 > 1000.0 H Folate 9.99 05/24/19 15:00 Abdomen - Incision Site Gram Stain - Final Impressions: Retroperitoneal Abscess Drainage 05/24/19 00:00 IMPRESSION: Successful CT-guided aspiration of the small fluid collection in the anterior abdominal wall. Abdomen/Pelvis CT 05/24/19 12:03 IMPRESSION: 1. There is a low transverse abdominal incision with a circumscribed fluid collection of the internal aspect of the peritoneal surface measuring 4.0 x 2.0 x 5.4 cm extending superiorly from the incision margin (se rocky 2, image 75, series 602, image 39). This is nonspecific and may reflect postoperative hematoma/seroma or alternately abscess depending upon clinical presentation. 2. Enlarged uterus with fluid and tiny air foci within the endometrial cavity (series 602, image 39), again nonspecific in the setting. Assessment and Plan - Diagnosis (1) Hypokalemia Is this a current diagnosis for this admission?: Yes Plan: -Resolved -Likely secondary to gentamicin and some component from vomiting (2) Atrial fibrillation Qualifiers: Atrial fibrillation type: longstanding persistent Qualified Code(s): I48.11 - Longstanding persistent atrial fibrillation Is this a current diagnosis for this admission?: Yes Plan: -Continue metoprolol 12.5 mg every 12 -Echocardiogram results are still not available. However this should not hold up discharge and patient can simply follow-up to get the results faxed to her primary care provider or her rail engineer once she has one set up. I have discussed this with the on-call garnett feeder. (3) Hypoalbuminemia Is this a current diagnosis for this admission?: Yes Plan: -Patient's urinalysis after straight catheterization shows no evidence of proteinuria ruling out nephrotic syndrome or renal losses of albumin -Unlikely from the liver disease given no history or risk factors for cirrhosis, normal platelets and only minimally elevated coags with normal liver enzymes -My suspicion for the etiology of this is likely dilutional effect from recent or decreased protein caloric intake -Encourage proper nutrition and will just opt to monitor this for now and repeat levels in a few months (4) Sepsis following intra-abdominal surgery Is this a current diagnosis for this admission?: Yes (5) Wound infection after surgery Is this a current diagnosis for this admission?: Yes - Plan Summary Summary: admitted for post cesearean wound infection. has had I&D, IV antibiotics and anemia workup. WBC is trending down. drainage is improving and packing is going well. I showed patient SO how to pack the defect and gave them both strict instructions for care. They both voiced understanding. - Time Time Spent with patient: Less than 15 minutes
--- NOTE | 2019-05-28 12:19 | XCELERA REPORT ---
[address] [address] Transthoracic Echocardiogram Report Name: NORA MONSON Age: 29 yrs Gender: Female : 1990 Patient Status: Inpatient Patient Location: [address] [place] [address] Study Date: 05/25/2019 12:23 PM Height: 67 in Weight: 123 lb BSA: 1.6 m2 Procedure: A two-dimensional transthoracic echocardiogram with color flow and Doppler was performed. Study Quality: Fair. Reason For Study: new onset afib History: new onset afib. Ordering Physician: MARISOL WOLFE Performed By: Paola Smith Interpretation Summary The left ventricle is normal in size. There is normal left ventricular wall thickness. LV EF is 65% Left ventricular systolic function is normal. Doppler measurements suggest normal left ventricular diastolic function The left ventricular wall motion is normal. There is no thrombus. No ASD ,VSD , or PFO. The right ventricle is normal in size and function. The right atrium is normal. The left atrial size is normal. There is borderline mitral valve prolapse. There is no vegetation seen on the mitral valve. There is no mitral valve stenosis. There is a mild amount of mitral regurgitation There is no aortic valvular vegetation. There is no aortic valve stenosis There is no LVOT obstruction. There is no tricuspid stenosis. There is a trace to mild amount of tricuspid regurgitation Upper normal to early mild pulmonary hypertension.RVSP is 29 to 34 mm of Hg , with RA mean of 5 to 10. There is no pulmonic valvular stenosis. There is a trace amount of pulmonic regurgitation The aortic root is normal size. The inferior vena cava appeared normal and decreased > 50% with respiration (RAP 5-10 mmHg) There is no pericardial effusion. MMode/2D Measurements & Calculations RVDd: 3.2 cm LVIDd: 5.0 cm FS: 41.6 % Ao root diam: 2.6 cm IVSd: 0.79 cm LVIDs: 2.9 cm EDV(Teich): 118.7 ml Ao root area: 5.3 cm2 LVPWd: 0.90 cm ESV(Teich): 32.9 ml EF(Teich): 72.2 % Doppler Measurements & Calculations MV E max godwin: MV dec slope: Ao V2 max: LV V1 max P.8 cm/sec 704.1 cm/sec2 145.7 cm/sec 4.2 mmHg MV A max godwin: MV dec time: 0.16 secAo max PG: LV V1 max: 98.3 cm/sec 8.5 mmHg 102.5 cm/sec MV E/A: 1.1 PA V2 max: TR max godwin: 78.5 cm/sec 245.0 cm/sec PA max P.5 mmHg TR max P.0 mmHg Left Ventricle The left ventricle is normal in size. There is normal left ventricular wall thickness. LV EF is 65%. Left ventricular systolic function is normal. Doppler measurements suggest normal left ventricular diastolic function. The left ventricular wall motion is normal. There is no thrombus. No ASD ,VSD , or PFO. Right Ventricle The right ventricle is normal in size and function. Atria The right atrium is normal. The left atrial size is normal. Mitral Valve There is borderline mitral valve prolapse. There is no vegetation seen on the mitral valve. There is no mitral valve stenosis. There is a mild amount of mitral regurgitation. Aortic Valve There is no aortic valvular vegetation. There is no aortic valve stenosis. There is no LVOT obstruction. No aortic regurgitation is present. Tricuspid Valve There is no tricuspid stenosis. There is a trace to mild amount of tricuspid regurgitation. Upper normal to early mild pulmonary hypertension.RVSP is 29 to 34 mm of Hg , with RA mean of 5 to 10. Pulmonic Valve There is no pulmonic valvular stenosis. There is a trace amount of pulmonic regurgitation. Great Vessels The aortic root is normal size. The inferior vena cava appeared normal and decreased > 50% with respiration (RAP 5-10 mmHg). Effusions There is no pericardial effusion. : MARISOL WOLFE Lakshmi
== END 2019-05-27 11:00 | disposition home or self-care (01) | DRG 769 ==
LOC: UNDOADMOB 16:48 → 2N 16:48 → OBSVTOIN 05-23 08:48
PROVIDERS: ADMIT Specialist; ATTEND Specialist
PROC: 0W9F3ZX Drainage of Abdominal Wall, Percutaneous Approach, Diagnostic (ICD-10-PCS; principal; 2019-05-24)
DX: O86.04 Sepsis following an obstetrical procedure (principal); A41.9 Sepsis, unspecified organism; D62 Acute posthemorrhagic anemia; O90.89 Other complications of the puerperium, not elsewhere classified; O90.81 Anemia of the puerperium; E87.6 Hypokalemia; E88.09 Other disorders of plasma-protein metabolism, not elsewhere classified; S30.824A Blister (nonthermal) of vagina and vulva, initial encounter; I48.91 Unspecified atrial fibrillation
CPT/HCPCS: 36415; 49406; 74177; 80048; 80053; 80170; 81001; 82607; 82728; 82746; 83540; 83550; 83735; 85025; 85027; 85045; 85384; 85610; 85730; 87040; 87070; 87075; 87077; 87086; 87186; 87205; 93005; 93010; 93306; J0290; J1580; J2250; J2270; J2405; J3010; J3480; J3490; J7030; J7042; J7060